=== PATIENT | female | born 1940 | race Caucasian/White ===

== ENCOUNTER 2016-09-25 19:02 | Observation (INO) ==
[2016-09-25] MEDS ORDERED: 0.9 % Sodium Chloride 1,000 ML IVC ONE (19:11)
--- NOTE | 2016-09-25 19:25 | Emergency Department Note ---
START Narrative - START START: I examined this patient and my medical decision-making was reviewed with the Resident Physician. I agree with the documented findings, disposition and treatment plan as described except to the extent set forth below. Patient was independently seen and evaluated by myself. Patient was seen with the emergency medicine resident Juan R Lo. Please see copy of her notes for details of this ED encounter management and disposition. Briefly: A 76-year-old female by EMS for frequent falls. History of hypertension among other medical problems. Some confusion and increased weakness. Patient had unknown type of fall at the [facility] today. Brought in by EMS, no external signs of trauma. Patient is tender along her spine. Labs and images are pending. Admission anticipated. Provided 30 minutes of critical care service of this patient. Disposition pending.
--- NOTE | 2016-09-25 19:27 | Emergency Department Note ---
Disposition Clinical Impression: Generalized weakness, Confusion, Risk for falls Disposition: Admitted As Inpatient Condition: Fair Referrals: Unassigned,Provider [Primary Care Provider] - Forms: ED Satisfaction Letter Time of Disposition: 23:59 Fall HPI - General Chief Complaint: ED Fall Stated Complaint: Freq Falls Time Seen by Provider: 09/25/16 19:05 Nursing Notes Reviewed: Yes Vital Signs Reviewed: Yes - History of Present Illness HPI Narrative: Patient is a 76-year-old female was brought in for global weakness and falls times past several months worsening today. Patient fell hitting her head and is on antiplatelet therapy. Patient has a history of prior strokes - Related Data Home Medications Medication Instructions Recorded Confirmed Aspirin 81 mg PO DAILY 09/07/15 01/26/16 Furosemide [Lasix] 40 mg PO BID PRN 09/07/15 01/26/16 Ipratropium/Albuterol Neb [Duoneb] 3 ml IH Q6HR PRN 09/07/15 01/26/16 Potassium Chloride [K-Tab ER] 10 meq PO BID 09/07/15 01/26/16 Clopidogrel [Plavix] 75 mg PO DAILY 12/29/15 01/26/16 Losartan [Cozaar] 25 mg PO BID 12/29/15 01/26/16 amLODIPine [Norvasc] 5 mg PO DAILY 12/29/15 01/26/16 Ergocalciferol (VITAMIN D2) 50,000 unit PO WE 01/26/16 01/26/16 [Vitamin D2] FLUoxetine HCl [Prozac] 40 mg PO DAILY 01/26/16 01/26/16 Oxygen 3 l NS AD 01/26/16 01/26/16 Previous Rx's Medication Instructions Recorded Cyanocobalamin (B-12) [Vitamin B12] 500 mcg PO DAILY tablet 09/10/15 Docusate [Colace] 100 mg PO BID PRN #0 capsule 09/10/15 OxyCODONE/APAP 10/325 [Percocet 1 each PO Q6H PRN #20 tablet 01/28/16 10/325 MG] diazePAM [Valium] 10 mg PO BID #20 tablet 01/28/16 Levofloxacin [Levaquin] 750 mg PO DAILY #7 tablet 02/18/16 Allergies Allergy/AdvReac Type Severity Reaction Status Date / Time Iodinated Contrast- Oral and AdvReac Hives, Verified 01/26/16 15:58 IV Dye Nausea, [Iodinated Contrast Media - Vomiting Oral and] Penicillins AdvReac Itching Verified 01/26/16 15:58 Fall PMH - Past Medical History Medical history: Reports: COPD, CVA, diabetes, GERD, hyperlipidemia, hypertension, renal disease, TIA Surgical history: Reports: cholecystectomy, hysterectomy, orthopedic, other ( back surgery) Psychiatric history: Reports: anxiety, depression - Social History Smoking Status: Current every day smoker Alcohol use: Reports: none Drug use: Reports: none Course - Reevaluation(s) Reevaluation #1: Patient seen and examined, workup for stroke, ACS initiated. Imaging CT head neck and thoracic ordered. Time: 19:11 Reevaluation #2: Patient doing well, patient heading down for CT Time: 20:30 Reevaluation #3: Patient doing well, just need to get urine. Straight catheter ordered. Patient agrees and accepts straight catheter. Physical occult what tests ordered and obtained. Waiting for results. Time: 21:57 - Consultations Consultation #1: Patient accepted for admission by the hospitalist Dr. FIORE 2350 hrs Time: 23:51 Fall - [facility] Narrative Medical decision making narrative: Patient with global weakness, frequent falls, fell and hit her head today concerning for ACS/AZ, ischemic stroke, cerebellar stroke, UTI, cardiac arrhythmia leading to brain ischemia transiently. Patient's workup showed no abnormalities that would indicate why patient is having this global weakness and confusion. Recommend admission since patient lives on her own in assisted living and is a fall risk. Also recommend neurology follow-up. Patient is admitted to the hospitalist Dr. magui john for further workup and care. Patient understands and agrees to treatment plan. - Lab Data Lab results reviewed: Yes I reviewed the patient's lab results. Lab results narrative: Short CBC 09/25/16 Range/Units 19:33 WBC 7.5 (4.3-11.1) K/mcL Hgb 12.1 (11.5-15.4) g/dL Hct 38.6 (35.3-44.9) % Plt Count 188 (140-400) K/mcL Neutrophils # 4.9 (1.6-8.9) K/mcL BMP 09/25/16 Range/Units 19:33 Sodium 141 (136-145) mEq/L Potassium 3.9 (3.5-4.5) mEq/L Chloride 101 (98-109) mEq/L Carbon Dioxide 31 H (19-29) mEq/L BUN 17 (7-20) mg/dL Creatinine 1.18 H (0.57-1.11) mg/dL Glucose 193 H (70-99) mg/dL Calcium 9.3 (8.6-10.8) mg/dL Liver Function 09/25/16 Range/Units 19:33 Total Bilirubin 0.3 (0.2-1.2) mg/dL AST 13 (5-34) Units/L ALT 10 (0-55) Units/L Alkaline Phosphatase 57 (38-126) Units/L Albumin 3.3 L (3.5-5.0) g/dL - Radiology Data Radiology results reviewed: Yes I reviewed the patient's radiology results. Cervical Spine CT 09/25/16 19:11 IMPRESSION: 1. No acute fracture. D/ / Juan Donaldson MD / Juan Donaldson MD Interpreting Provider: Juan Donaldson MD Chest X-Ray 09/25/16 19:11 IMPRESSION: No acute disease. D/ / Max Clay MD / Max Clay MD Interpreting Provider: Max Clay MD Head CT 09/25/16 19:11 IMPRESSION: No acute intracranial abnormality. Chronic microvascular ischemic changes and global cerebral atrophy. D/ / Candido Hernández MD / Candido Hernández MD Interpreting Provider: Candido Hernández MD Thoracic Spine CT 09/25/16 19:11 IMPRESSION: Unremarkable CT of the thoracic spine. D/ / Juan Donaldson MD / Juan Donaldson MD Interpreting Provider: Juan Donaldson MD - EKG Data EKG attestation: Yes I reviewed and interpreted this EKG. EKG results narrative: EKG taken 09/25/2016 and 1936 hrs. shows a sinus bradycardia at a rate of 57 bpm with no acute ST elevations or depressions any leads, no QRS widening or QT prolongation. Previous EKG taken 02/18/2016 shows sinus rhythm at a rate of 63 bpm Lotta artifact but no acute ST elevations or depressions any leads or QRS widening or QT prolongation.
[2016-09-25 19:41] LABS: Basophils % 0.5 %; Eosinophils # 0.4 K/mcL (0.0-0.6); Eosinophils % 5.4 %; Hematocrit 38.6 % (35.3-44.9); Hemoglobin 12.1 g/dL (11.5-15.4); Immature Granulocytes % 0.3 % (0-4); Immature Platelets 3.8 % (1.1-6.1); Lymphocytes # 1.6 K/mcL (0.6-4.6); Lymphocytes % 20.8 %; Mean Corpuscular HGB Conc 31.3 g/dL (31.6-35.5); Mean Corpuscular Hemoglobin 28.9 pg (28.0-33.3); Mean Corpuscular Volume 92.3 fL (83.0-100.0); Mean Platelet Volume 10.3 fL (9.4-12.4); Monocytes # 0.5 K/mcL (0.0-1.3); Monocytes % 6.7 %; Neutrophils # 4.9 K/mcL (1.6-8.9); Platelet Count 188 K/mcL (140-400); Red Blood Count 4.18 M/mcL (3.82-4.97); Red Cell Distribution Width 12.4 % (11.5-14.5); Segmented Neutrophils % 66.3 %
[2016-09-25 19:54] LABS: Albumin 3.3 g/dL (3.5-5.0); Albumin/Globulin Ratio 0.8 (1.1-2.2); Bilirubin,Total 0.3 mg/dL (0.2-1.2); Calcium 9.3 mg/dL (8.6-10.8); Globulin 4.3 g/dL (2.4-3.5); Potassium 3.9 mEq/L (3.5-4.5); Total Protein 7.6 g/dL (6.0-8.3)
[2016-09-25 22:27] LABS: Bilirubin,Urine Negative (Negative); Blood,Urine Moderate (Negative); Clarity,Urine Clear (Clear); Color,Urine Yellow (Yellow); Glucose,Urine (UA) Normal (Normal); Ketones,Urine Negative (Negative); Leukocyte Esterase,Urine Small (Negative); Nitrite,Urine Negative (Negative); Protein,Urine Negative (Neg-Trace); Specific Gravity,Urine 1.021 (1.010-1.025); Urobilinogen,Urine Normal (Normal)
[2016-09-25 22:29] LABS: Bacteria,Urine None Seen per hpf (None-Few); Hyaline Casts,Urine Few per lpf (None-Few); RBC,Urine 15-30 per hpf (0-3); Squamous Epithelial Cell,Urine Many per lpf (None-Few); WBC,Urine 0-3 per hpf (0-3)
[2016-09-26] MEDS ORDERED: Ondansetron 4 MG/2 ML VIAL IVP PRN (04:48)
[2016-09-26] MEDS ORDERED: Naloxone 0.4 MG/ML INJ IVP PRN (04:48)
--- NOTE | 2016-09-26 05:02 | Internal Med History&Physical ---
Date of Encounter: 09/26/16 Time of Encounter: 04:56 Assessment and Plan (1) Syncope Current visit: No Status: Acute 1. Will place on telemetry, follows EKG's. 2. Will order ECHO, Carotid Dopplers, and monitor telemetry. 3. Patient is bradycardic and not on any meds which could suppress her HR. 4. Monitor glucose for signs of hypoglycemia. Qualifiers: Syncope type: unspecified Qualified Code(s): R55 - Syncope and collapse (2) Frequent falls Current visit: No Status: Acute 1. Maybe related to syncope. 2. Monitor. 3. Consult PT/OT to assess. (3) HTN (hypertension) Current visit: No Status: Chronic 1. Monitor BP and continue home meds as appropriate. 2. Adjust dosing as necessary. Qualifiers: Hypertension type: essential hypertension Qualified Code(s): I10 - Essential (primary) hypertension (4) DVT prophylaxis Current visit: No Status: Acute 1. Heparin SQ. Internal Medicine - H&P: HPI Chief complaint: falls; syncope Admitted From: Emergency Dept Plans for Post Hospital Care: Home History of present illness: Ms. Wong is a 76 year old female who [facility] complaints of fall on multiple occasions. She has been unable to ambulate even with a walker without following on frequent occasions. This has progressively worsened. [facility]'s event was worse and she came to ER for evaluation. She had imaging of her thoracic spine, head, and cervical spine CT, all of which were negative. She was subsequently admitted to the hospitalist service. Upon my assessment of the patient, she describes frequent feelings of lightheadedness and dizziness before she falls. It appears that her falls are more likely related to her syncopal events. She states she has had a few episodes in the past where she had true syncope. She had an episode about a year and a half ago where she fell after sustaining a syncopal spell. During that fall, she sustained fractures to both arms. She does not have any chest pain, shortness of breath, or palpitations. She states she has a history of an old stroke. She is not diabetic and denies any problems with her glucose control. Because of her fear of falling and passing out, she is rather sedentary and is afraid to walk and ambulate. I noted that she seems bradycardic on auscultation and her EKG does show sinus bradycardia. She denies any prior heart rhythm problems. Furthermore, she does not take any medications which can suppress her AV node. Past Med Surg Social Fam HX - Past Medical History Attestation: Yes The following information was validated with the patient. Source: patient, old records reviewed Medical history: COPD, CVA, diabetes, GERD, hyperlipidemia, hypertension, renal disease, TIA Psychiatric history: anxiety, depression - Past Surgical History Surgical History: cholecystectomy, hysterectomy, orthopedic, other - Social History Smoking Status: Former smoker Smokeless Tobacco Status: No Alcohol use: none Drug use: none Current living situation: Assisted Living Activity Level: Uses cane/walker Recent Out of Country Travel Within the Last 8 Weeks: No - Family History Father Living Status: Brother Living Status: Still Living Hx Family Cardiac Disorders: Yes (Bi-pass, CHF) Mother History Unknown: Yes Adopted: [place]: [place]rina [place] Age: 72 Family Member Ethnicity: Non- Living Status: Hx Family Cardiac Disorders: Yes Hx Family Respiratory Disorders: No Hx Family Cancer: Yes Hx Family GI Disorders: No Hx Family Endocrine Disorder: Yes (Diabetes) Hx Family Neuromuscular Disorders: Yes (CVA) Hx Family Neurologic Disorders: No Hx Family HEENT Disorders: No Hx Family Autoimmune Disorders: No Internal Medicine - H&P: Meds Aspirin 81 mg PO DAILY 09/07/15 [History] Furosemide [Lasix] 40 mg PO BID PRN 09/07/15 [History] Ipratropium/Albuterol Neb [Duoneb] 3 ml IH Q6HR PRN 09/07/15 [History] Potassium Chloride [K-Tab ER] 10 meq PO BID 09/07/15 [History] Cyanocobalamin (B-12) [Vitamin B12] 500 mcg PO DAILY tablet 09/10/15 [Rx] Docusate [Colace] 100 mg PO BID PRN #0 capsule 09/10/15 [Rx] Clopidogrel [Plavix] 75 mg PO DAILY 12/29/15 [History] Losartan [Cozaar] 25 mg PO BID 12/29/15 [History] amLODIPine [Norvasc] 5 mg PO DAILY 12/29/15 [History] Ergocalciferol (VITAMIN D2) [Vitamin D2] 50,000 unit PO WE 01/26/16 [History] FLUoxetine HCl [Prozac] 40 mg PO DAILY 01/26/16 [History] Oxygen 3 l NS AD 01/26/16 [History] OxyCODONE/APAP 10/325 [Percocet 10/325 MG] 1 each PO Q6H PRN #20 tablet [Rx] diazePAM [Valium] 10 mg PO BID #20 tablet 01/28/16 [Rx] Levofloxacin [Levaquin] 750 mg PO DAILY #7 tablet 02/18/16 [Rx] 3 Allergy/AdvReac Type Severity Reaction Status Date / Time Iodinated Contrast- Oral and AdvReac Hives, Verified 01/26/16 15:58 IV Dye Nausea, [Iodinated Contrast Media - Vomiting Oral and] Penicillins AdvReac Itching Verified 01/26/16 15:58 - Constitutional Constitutional: falls, no chills, no fever(s) - EENT Eyes: no blurry vision, no change in vision, no diplopia Ears: no ear pain, no tinnitus Nose, mouth and throat: no nasal discharge, no sinus pressure, no sore throat - Cardiovascular Cardiovascular ROS IM: lightheadedness, syncope, no chest pain, no diaphoresis, no dyspnea, no dyspnea on exertion, no edema, no palpitations - Respiratory Respiratory: no cough, no dyspnea, no hemoptysis - Gastrointestinal Gastrointestinal: no abdominal pain, no bloating, no cramping, no diarrhea, no hematemesis, no hematochezia, no melena, no vomiting - Genitourinary Genitourinary: no dysuria, no flank pain, no hematuria - Musculoskeletal Musculoskeletal ROS IM: arthralgias, no back pain - Integumentary Integumentary IM: no rash, no jaundice - Neurological Neurological ROS: dizziness, frequent falls, weakness, no focal weakness, no headache(s), no numbness - Psychiatric Psychiatric: no anxiety, no depression - Endocrine Endocrine IM: no cold intolerance, no heat intolerance - Hematologic/Lymphatic Hematologic/Lymphatic: no lymphadenopathy - Allergic/Immunologic Allergic/Immunologic: no GI upset with certain foods - Constitutional Vitals: Temp Pulse Resp BP Pulse Ox 97.6 F 65 15 167/73 99 09/26/16 00:56 09/26/16 00:56 09/26/16 00:56 09/26/16 00:56 09/26/16 00:56 General appearance: Present: cachectic, mild distress, A&O X 3, pleasant, answers questions appropriately - Head Head exam: Present: atraumatic, normal inspection - Eye Eye exam: Present: EOMI, normal appearance, PERRL. Absent: scleral icterus Pupils: Present: normal accommodation - ENT ENT exam: Absent: normal exam - Neck Neck exam general surgery: Present: full ROM. Absent: lymphadenopathy, tenderness, nuchal rigidity - Respiratory Respiratory exam: Present: CTAB. Absent: chest wall tenderness, rales, respiratory distress, rhonchi, wheezes - Cardiovascular Cardiovascular exam: Present: irregular rhythm, +S1, +S2 - GI/Abdominal GI/Abdominal exam: Present: soft. Absent: hepatomegaly, splenomegaly, tenderness - Extremities Exam Extremities exam: Present: full ROM. Absent: calf tenderness, pedal edema, tenderness - Back Exam Back exam: Absent: CVA tenderness (L), CVA tenderness (R) - Neurological Exam Neurological exam: Present: alert, CN II-XII intact, oriented X3, no focal deficits, strengths equal and symetr throughout - Psychiatric Psychiatric exam: Present: normal affect, normal mood - Skin Skin exam: Present: dry, warm. Absent: rash Internal Med - H&P Results - Labs CBC & Chem 7: 09/25/16 19:33 09/25/16 19:33 - EKG Data -: EKG Interpreted by Myself - EKG Data EKG comments: 09/26/16 05:09 Sinus bradycardia - Diagnostic Studies Chest x-ray Status: image reviewed by me (negative)
[2016-09-26] MEDS: *HR* Heparin 5,000 UNIT/ML VIAL SQ SCH ×3 (05:25→21:56)
[2016-09-26 07:41] LABS: Basophils # 0.1 K/mcL (0.0-0.2); Basophils % 0.6 %; Eosinophils # 0.4 K/mcL (0.0-0.6); Eosinophils % 5.3 %; Hematocrit 37.4 % (35.3-44.9); Hemoglobin 11.9 g/dL (11.5-15.4); Immature Granulocytes % 0.5 % (0-4); Lymphocytes # 2.1 K/mcL (0.6-4.6); Lymphocytes % 25.8 %; Mean Corpuscular HGB Conc 31.8 g/dL (31.6-35.5); Mean Corpuscular Hemoglobin 29.5 pg (28.0-33.3); Mean Corpuscular Volume 92.6 fL (83.0-100.0); Mean Platelet Volume 10.8 fL (9.4-12.4); Monocytes # 0.6 K/mcL (0.0-1.3); Monocytes % 7.4 %; Neutrophils # 4.9 K/mcL (1.6-8.9); Platelet Count 178 K/mcL (140-400); Red Blood Count 4.04 M/mcL (3.82-4.97); Red Cell Distribution Width 12.2 % (11.5-14.5); Segmented Neutrophils % 60.4 %
[2016-09-26 07:42] LABS: Prothrombin Time 10.7 Seconds (9.4-12.1)
[2016-09-26 07:45] LABS: Activated Partial Thrombo Time 32.5 Seconds (26.0-36.0)
[2016-09-26 07:47] LABS: Alanine Aminotransferase 10 Units/L (0-55); Albumin 3.1 g/dL (3.5-5.0); Albumin/Globulin Ratio 0.8 (1.1-2.2); Alkaline Phosphatase 54 Units/L (38-126); Aspartate Amino Transferase 12 Units/L (5-34); BUN/Creatinine Ratio 17 (6-26); Bilirubin,Total 0.6 mg/dL (0.2-1.2); Blood Urea Nitrogen 16 mg/dL (7-20); Calcium 9.3 mg/dL (8.6-10.8); Carbon Dioxide 32 mEq/L (19-29); Chloride 103 mEq/L (98-109); Globulin 3.9 g/dL (2.4-3.5); Glucose 111 mg/dL (70-99); Magnesium 1.8 mg/dL (1.6-2.6); Osmolality,Calculated 296 (280-300); Potassium 3.7 mEq/L (3.5-4.5); Sodium 142 mEq/L (136-145); eGFR For African Americans > 60 (> 60); eGFR For Non-African Americans 58 (> 60)
[2016-09-26] MEDS: *HR* OxyCODONE/APAP 10/325 TABLET PO PRN ×2 (08:06→23:30)
[2016-09-26] MEDS: diazePAM 10 MG TABLET PO SCH ×2 (08:06→21:56)
[2016-09-26] MEDS: Cyanocobalamin (B-12) 1,000 MCG TABLET PO SCH (08:06)
[2016-09-26] MEDS: amLODIPine 5 MG TABLET PO SCH (08:06)
[2016-09-26] MEDS: FLUoxetine 20 MG CAPSULE PO SCH (08:06)
[2016-09-26] MEDS: Aspirin 81 MG TAB.CHEW PO SCH (08:06)
[2016-09-26] MEDS: Ipratropium/Albuterol Neb 3 ML IH SCH ×3 (13:09→22:13)
--- NOTE | 2016-09-26 14:04 | Event Note ---
Date of Encounter: 09/26/16 Time of Encounter: 13:57 Patient seen and examined. She reports syncope and falling on multiple occasions and does much better with her walker. She does feel dizzy and light- headed when this happens. She denies any chest pain, palpitations, dypnea, or diaphoresis associated with these events. She does report that she is more confused at times, but does not feel there is an association with the falls. She had very poor food and fluid intake for several day prior to this latest fall. Previous history of CVA with some residual weakness in her right lower extremity. Currently she feels well and has no complaints. Denies chest pain, dyspnea, cough, N/V/D, dysuria, or leg pain/swelling. Plan: Echo and Carotid U/S pending. Monitor glucose. PT/OT consulted.
[2016-09-26] MEDS: Nystatin POWDER 30 GM BOTTLE TP SCH ×2 (15:12→21:56)
[2016-09-26] MEDS ORDERED: Perflutren Lipid Microsphere 1.3 ML in 0.9 % Sodium Chloride 8.7 ML IVP ONE (15:17)
[2016-09-26] MEDS ORDERED: Perflutren Lipid Microsphere 2 ML VIAL ONE (15:20)
--- NOTE | 2016-09-26 18:08 | Electrocardiograph Report ---
[address] [place] [address] Test Date: 2016-09-25 Pat Name: Joanna Wong Department: 0 Room: 3A36 Gender: F Staff Reporter: Reyna : 1940 Requested By: Mono Nayak Order Number: [id number] Reading MD: Tadeo Curry MD Measurements Intervals [place] Rate: 57 P: 81 MS: 171 QRS: 9 QRSD: 87 T: 48 QT: 405 QTc: 399 Interpretive Statements SINUS BRADYCARDIA Electronically Signed On 09-26-2016 18:07:12 EDT by Tadeo Curry MD
[2016-09-27] MEDS: Ipratropium/Albuterol Neb 3 ML IH SCH ×4 (04:06→22:15)
[2016-09-27 05:32] LABS: BUN/Creatinine Ratio 16 (6-26); Blood Urea Nitrogen 18 mg/dL (7-20); Calcium 9.2 mg/dL (8.6-10.8); Carbon Dioxide 32 mEq/L (19-29); Chloride 103 mEq/L (98-109); Chol/HDL Ratio 10.6 (0-4.9); Cholesterol 306 mg/dL (< 200); Glucose 109 mg/dL (70-99); HDL Cholesterol 29 mg/dL (40-59); Osmolality,Calculated 294 (280-300); Potassium 4.1 mEq/L (3.5-4.5); Triglycerides 458 mg/dL (< 150); eGFR For African Americans 55 (> 60); eGFR For Non-African Americans 45 (> 60)
[2016-09-27 05:33] LABS: Sodium 141 mEq/L (136-145)
[2016-09-27] MEDS: *HR* Heparin 5,000 UNIT/ML VIAL SQ SCH ×3 (05:38→21:03)
--- NOTE | 2016-09-27 07:02 | Carotid Imaging Report ---
Carotid Duplex Patient Name:Joanna Wong Order Number:[id number] Procedure Date:09/26/2016 Date:1940Age:76 yrs Gender:Female Lt BP:175 / 76 mmHg Rt.BP:175 / 76 mmHgHeart Rate: Location:[facility] Room #: 3A36 Multi Punch Operator:Cr Montes Referring MD:Isac Florence MD wildlife biology technician:Rula Graham, HYDROLOGICAL TECHNICAL OFFICER Reading MD:Danny Riggs MD Primary Indications:Syncope Risk Factors Yes/No Hypertension Yes Diabetes Yes Hypercholesterolemia Yes Smoker Previous Yes Impressions: The right carotid artery has minimal plaque throughout. The left internal carotid artery has a 40-59% stenosis. Recommendations: Risk factor reduction. Follow-up carotid duplex in 1 year. Findings Carotid Duplex: Right: There is nonstenotic plaque in the right bifurcation. There is smooth homogeneous plaque. There is nonstenotic plaque in the right proximal internal carotid artery. There is irregular heterogeneous plaque. Left: There is nonstenotic plaque in the left distal common carotid artery. There is smooth homogeneous plaque. There is nonstenotic plaque in the left bifurcation. There is smooth homogeneous plaque. There is 40-59% stenosis in the left proximal internal carotid artery. There is irregular heterogeneous plaque. Prior Study: No prior study available for comparison. Carotid Results Right PSV EDV Assessment Proximal CCA 71 8 Normal Mid CCA 61 12 Normal Distal CCA 46 8 Normal Bifurcation 51 10 Non Stenotic Plaque Proximal ICA 76 14 Non Stenotic Plaque Mid ICA 85 22 Normal Distal ICA 70 17 Normal ECA 143 0 Normal Vertebral Artery 75 14 Antegrade Flow Left PSV EDV Assessment Proximal CCA 90 18 Normal Mid CCA 73 12 Normal Distal CCA 66 11 Non Stenotic Plaque Bifurcation 77 11 Non Stenotic Plaque Proximal ICA 123 22 40-59% stenosis Mid ICA 101 19 Normal Distal ICA 74 19 Normal ECA 121 0 Normal Vertebral Artery 94 17 Retrograde Flow Ratio's Right ICA/CCA Ratio: 1.27 ICA/CCA Values: 85/67 Left ICA/CCA Ratio: 1.68 ICA/CCA Values: 123/73 Updated by Danny Riggs MD on 09/27/2016 6:58:27 AM electronically signed on 09/27/2016 6:58:44 AM with status of Final
[2016-09-27] MEDS: Aspirin 81 MG TAB.CHEW PO SCH (08:37)
[2016-09-27] MEDS: diazePAM 10 MG TABLET PO SCH ×2 (08:37→21:03)
[2016-09-27] MEDS: Cyanocobalamin (B-12) 1,000 MCG TABLET PO SCH (08:38)
[2016-09-27] MEDS: *HR* OxyCODONE/APAP 10/325 TABLET PO PRN ×2 (08:38→21:24)
[2016-09-27] MEDS: FLUoxetine 20 MG CAPSULE PO SCH (08:38)
[2016-09-27] MEDS: amLODIPine 5 MG TABLET PO SCH (08:38)
[2016-09-27] MEDS: Nystatin POWDER 30 GM BOTTLE TP SCH ×3 (08:41→21:03)
--- NOTE | 2016-09-27 10:51 | Internal Med Progress Note ---
Date of Encounter: 09/27/16 Time of Encounter: 10:48 - Assessment and plan (1) Syncope Current Visit: No Status: Acute Assessment and plan: Likely secondary to Orthostatic Hypotension - awaiting orthostatic measurements Carotid U/S: Left Internal carotid with 40-59% stenosis. Right with minimal plaque throughout. Echo: LVEF 60%, moderate diastolic dysfunction of left ventricle Plan: Orthostatic BP measurements Change BP medications as needed Qualifiers: Syncope type: unspecified Qualified Code(s): R55 - Syncope and collapse (2) Frequent falls Current Visit: No Status: Acute Assessment and plan: Likely Orthostatic in nature Plan: Continue PT/OT Will need placement/rehab upon discharge (3) HTN (hypertension) Current Visit: No Status: Chronic Assessment and plan: On Losartan, Amlodipine, and Lasix at home Plan: Continue therapy for now May need to adjust based on orthostatic measurements Qualifiers: Hypertension type: essential hypertension Qualified Code(s): I10 - Essential (primary) hypertension (4) Hyperlipemia Current Visit: No Status: Chronic Assessment and plan: TG 485, Chol 306, LDL/VLDL not calculated (TNP), HDL 29 Has tried several medications in the past - unable to tolerate medications for Hyperlipidemia Qualifiers: Hyperlipidemia type: unspecified (5) DVT prophylaxis Current Visit: No Status: Acute Assessment and plan: Heparin - Subjective Interval history: Patient seen and examined, she is sitting up in her chair. Reports she is feeling well without complaints. She was up with PT and walked some in the room without feeling dizzy. They will be back later to work with her more. She denies chest pain, dyspnea, cough, N/V/D, dysuria, or leg pain/edema. - Constitutional Vitals: Temp Pulse Resp BP Pulse Ox 97.9 F 105 16 130/74 95 09/27/16 06:40 09/27/16 06:40 09/27/16 06:40 09/27/16 06:40 09/27/16 06:40 General appearance: Present: cachectic, mild distress, A&O X 3, pleasant, answers questions appropriately - Head Head exam: Present: atraumatic, normocephalic - Eye Eye exam: Present: conjuntiva pink, sclera anicteric - ENT ENT exam: Present: mucous membranes moist - Respiratory Respiratory exam: Present: CTAB. Absent: rales, rhonchi, wheezes - Cardiovascular Cardiovascular exam: Present: RRR, +S1, +S2. Absent: diastolic murmur, systolic murmur - GI/Abdominal GI/Abdominal exam: Present: normal bowel sounds, soft. Absent: distended, rigid , tenderness - Extremities Exam Extremities exam: Present: pedal edema, warm, radial pulses palpable and symmetrical. Absent: tenderness - Neurological Exam Neurological exam: Present: alert, CN II-XII intact, oriented X3, no focal deficits Internal Medicine: Result - Labs CBC & Chem 7: 09/26/16 06:16 09/27/16 04:48 Labs: BMP 09/27/16 04:48 Sodium 141 Potassium 4.1 Chloride 103 Carbon Dioxide 32 H BUN 18 Creatinine 1.16 H Glucose 109 H Calcium 9.2 - ABG Interpretation ABG results: PT/INR, D-dimer PT 10.7 Seconds (9.4-12.1) 09/26/16 06:16 Consult Discharge Plan - Plan Referrals: Rula Graham, [employer] OPER[employer] [Primary Care Provider] -
[2016-09-28] MEDS: Ipratropium/Albuterol Neb 3 ML IH SCH ×3 (03:54→16:28)
[2016-09-28] MEDS: *HR* Heparin 5,000 UNIT/ML VIAL SQ SCH ×2 (05:01→14:04)
[2016-09-28 06:47] LABS: Potassium 4.4 mEq/L (3.5-4.5)
[2016-09-28] MEDS: FLUoxetine 20 MG CAPSULE PO SCH (12:49)
[2016-09-28] MEDS: diazePAM 10 MG TABLET PO SCH (12:50)
[2016-09-28] MEDS: Aspirin 81 MG TAB.CHEW PO SCH (12:51)
[2016-09-28] MEDS: Cyanocobalamin (B-12) 1,000 MCG TABLET PO SCH (12:52)
[2016-09-28] MEDS: amLODIPine 5 MG TABLET PO SCH (12:52)
[2016-09-28] MEDS: Nystatin POWDER 30 GM BOTTLE TP SCH ×2 (12:53→15:30)
--- NOTE | 2016-09-28 13:46 | Tilt Test Report ---
Name: Joanna Wong Date of Study: 09/28/2016 Date: 1940 Ht: 65.0in Medical Record#: [id number] Age: 76 Wt: 203.0lb Gender: Female BSA: 1.99 Order #: [id number] Location: [facility] Room #: 3a36 Reading Physician: Tania Hernandez DO Performing Physician: Yoli Harper CNP Ordering Physician: Laney Alberto MD Primary Care Physician: Rula Graham CNP Technologist: Arnulfo Jackson, ANNA Indication: Syncope Impressions Study stopped prematurely at patient's request (leg weakness). Current Stress Test Information Baseline Information: Blood Pressure: 140 / 70 Symptoms: Legs tired Findings: Following informed consent, the patient was placed supine on the tilt table. The table was angled to 70 degrees. Blood pressure and pulse rate were monitored for total of 10:12 minutes. Patient asked to stop the test due to leg weakness. The patient's blood pressure remained stable throughout her tilt testing time. Heart rates remained in the 50s. ECG demonstrated sinus bradycardia with heart rates in the 50s. History: Hypertension Diabetes Hypercholesteremia No Family Histor Updated by Tania Hernandez on 09/28/2016 1:39:12 PM electronically signed on 09/28/2016 1:41:15 PM with status of Final
[2016-09-28 14:10] VITALS: BP 105/97
--- NOTE | 2016-09-28 14:26 | Discharge Summary ---
Date of Encounter: 09/28/16 Time of Encounter: 10:10 - Discharge Diagnosis (1) Syncope Priority: Primary Status: Acute Comments: Possibly vasovagal/ bradycardia related Qualifiers: Syncope type: vasovagal syncope Qualified Code(s): R55 - Syncope and collapse (2) Frequent falls Priority: Secondary Status: Acute (3) HTN (hypertension) Priority: Secondary Status: Chronic Qualifiers: Hypertension type: essential hypertension Qualified Code(s): I10 - Essential (primary) hypertension (4) Hyperlipemia Priority: Secondary Status: Chronic Qualifiers: Hyperlipidemia type: unspecified Qualified Code(s): E78.5 - Hyperlipidemia , unspecified (5) DVT prophylaxis Priority: Secondary Status: Acute - Discharge Medications Prescriptions: diazePAM [Valium] 10 mg PO BID #14 tablet Oxycodone HCl/Acetaminophen [Percocet 10-325 mg Tablet] 1 tab PO BID PRN #14 PRN Reason: Pain Home Medications: Aspirin 81 mg PO DAILY 09/07/15 [History] Furosemide [Lasix] 40 mg PO BID PRN 09/07/15 [History] Potassium Chloride [K-Tab ER] 10 meq PO BID 09/07/15 [History] Cyanocobalamin (B-12) [Vitamin B12] 500 mcg PO DAILY tablet 09/10/15 [Rx] Docusate [Colace] 100 mg PO BID PRN #0 capsule 09/10/15 [Rx] Clopidogrel [Plavix] 75 mg PO DAILY 12/29/15 [History] Losartan [Cozaar] 25 mg PO BID 12/29/15 [History] Ergocalciferol (VITAMIN D2) [Vitamin D2] 50,000 unit PO WE 01/26/16 [History] FLUoxetine HCl [Prozac] 40 mg PO DAILY 01/26/16 [History] Oxygen 3 l NS AD 01/26/16 [History] Oxycodone HCl/Acetaminophen [Percocet 10-325 mg Tablet] 1 tab PO BID PRN #14 [Rx] amLODIPine [Norvasc] 5 mg PO DAILY tab 09/28/16 [Rx] diazePAM [Valium] 10 mg PO BID #14 tablet 09/28/16 [Rx] Allergies/Adverse Reactions: 3 Allergy/AdvReac Type Severity Reaction Status Date / Time Iodinated Contrast- Oral and AdvReac Hives, Verified 01/26/16 15:58 IV Dye Nausea, [Iodinated Contrast Media - Vomiting Oral and] Penicillins AdvReac Itching Verified 01/26/16 15:58 Procedures/tests Complete & Pending: Procedures Performed prior 72 hours Category Date Time Status ECG 12 lead ECG [ECG] Routine Y 09/25/16 19:36 Completed EV carotid duplex imaging BI Stat Y 09/26/16 04:48 Completed EV echocardiogram w enhance Stat Y 09/26/16 04:48 Completed SP tilt test Routine Y 09/28/16 08:03 Completed Date of admission: 09/26/16 00:07 Primary care physician: Rula Graham CNP Consults: 09/26/16 01:26 Consult to Pastoral Services [CONS] Stat Comment: 09/26/16 03:32 Consult to [facility] [CONS] Stat Reason for SW Consult: Pt from assisted living facility 09/26/16 04:52 Consult to Occupational Therapy [CONS] Routine Comment: Evaluate, develop and implement POC Reason for Consult: frequent falls Consult to Physical Therapy [CONS] Routine Comment: Evaluate, develop and implement POC Reason for Consult: frequent falls Discharging clinician: Laney Alberto Anticipated date of discharge: 09/28/16 - Patient Status Disposition: Transfer SNF Condition: Good Functional capacity at discharge: uses cane/walker Overall status at discharge: patient is progressing back to baseline - Discharge Instructions Instructions: Syncope (DC) Follow Up With: Rula Graham CNP [Primary Care Provider] - (In 1-2 weeks) - Diet and Activity Activity: as per physical therapy, increase activity as tolerated Diet: low fat, low cholesterol, low salt diet Hospital course: Ms. Wong is a 76 year old female patient with a history of COPD, diabetes, hypertension and hyperlipidemia presented to the ER with complaints of recurrent falls and a syncopal episode. Patient had been having episodes of dizziness and lightheadedness prior to her falls. She was found to be bradycardic on presentation and patient does take carvedilol at home. This medication was stopped and patient was monitored and treated with IV fluids. Her orthostatic blood pressure was checked and this was found to be normal. As part of syncope workup patient underwent 2-D echocardiogram which showed a normal ejection fraction of 60% with evidence of moderate diastolic dysfunction. CT scan of the head did not show any acute stroke or bleed. She also underwent carotid Dopplers which showed normal minimal plaque in the right carotid artery and 40-59% stenosis in the left internal carotid artery. Her symptoms have mostly resolved now and patient is not feeling as dizzy as she previously was. There could be an orthostatic component to her dizziness despite having normal orthostatic blood pressure on checking here because she did receive IV fluids prior to testing. To continue her syncope workup patient also underwent tilt table test but the test had to be stopped [place] as patient complained of some weakness in her lower extremities. She has since recovered. This test can be repeated as outpatient when the patient is feeling better. She was evaluated by physical therapy and recommended placement to skilled rehabilitation. Patient will be discharged from the hospital once she is accepted at her nursing facility for skilled rehabilitation. She is recommended to discontinue carvedilol due to her bradycardia. Her amlodipine dosage has been increased to control her blood pressure better. She can follow up for further management with her primary care provider. - Time Spent with Patient Total time spent providing and/or coordinating discharge services: Greater than 30 minutes (40 min) - Constitutional Vitals: Temp Pulse Resp BP Pulse Ox 97.6 F 72 16 105/97 95 09/28/16 14:08 09/28/16 14:08 09/28/16 14:08 09/28/16 14:08 09/28/16 14:08 General appearance: Present: cachectic, A&O X 3, pleasant, no acute distress, answers questions appropriately - Neck Neck exam general surgery: Present: supple, trachea midline. Absent: lymphadenopathy - Respiratory Respiratory exam: Present: CTAB. Absent: accessory muscle use, rales, rhonchi, wheezes - Cardiovascular Cardiovascular exam: Present: RRR, +S1, +S2. Absent: diastolic murmur, gallop, rubs, systolic murmur - GI/Abdominal GI/Abdominal exam: Present: normal bowel sounds, soft, no peritoneal signs. Absent: distended, tenderness - Neurological Exam Neurological exam: Present: alert, oriented X3, no focal deficits. Absent: facial droop, speech deficit
--- NOTE | 2016-09-28 14:36 | Physician Discharge Referral ---
ExtendedCare Referral Info Provider in Charge after Transfer: PCP Institutional Level of Care: Skilled - Diagnosis (1) Syncope Priority: Primary Status: Acute (2) Frequent falls Priority: Secondary Status: Acute (3) HTN (hypertension) Priority: Secondary Status: Chronic (4) Hyperlipemia Priority: Secondary Status: Chronic (5) DVT prophylaxis Priority: Secondary Status: Acute (6) Sinus bradycardia Priority: Secondary Status: Resolved Prognosis: Fair Aware of Diagnosis: Patient Aware of Prognosis: Patient - Transfer Medications Home Medications: Aspirin 81 mg PO DAILY 09/07/15 [History] Furosemide [Lasix] 40 mg PO BID PRN 09/07/15 [History] Potassium Chloride [K-Tab ER] 10 meq PO BID 09/07/15 [History] Cyanocobalamin (B-12) [Vitamin B12] 500 mcg PO DAILY tablet 09/10/15 [Rx] Docusate [Colace] 100 mg PO BID PRN #0 capsule 09/10/15 [Rx] Clopidogrel [Plavix] 75 mg PO DAILY 12/29/15 [History] Losartan [Cozaar] 25 mg PO BID 12/29/15 [History] Ergocalciferol (VITAMIN D2) [Vitamin D2] 50,000 unit PO WE 01/26/16 [History] FLUoxetine HCl [Prozac] 40 mg PO DAILY 01/26/16 [History] Oxygen 3 l NS AD 01/26/16 [History] diazePAM [Valium] 10 mg PO BID #20 tablet 01/28/16 [Rx] Oxycodone HCl/Acetaminophen [Percocet 10-325 mg Tablet] 1 tab PO BID PRN [History] amLODIPine [Norvasc] 5 mg PO DAILY tab 09/28/16 [Rx] Allergies/Adverse Reactions: 3 Allergy/AdvReac Type Severity Reaction Status Date / Time Iodinated Contrast- Oral and AdvReac Hives, Verified 01/26/16 15:58 IV Dye Nausea, [Iodinated Contrast Media - Vomiting Oral and] Penicillins AdvReac Itching Verified 01/26/16 15:58 - Respiratory Orders Oxygen / L per min (Keep sats >90%) Smoking Cessation: Smoking cessation has been advised. For more information, call the [employer] Tobacco Quit Line at 5-698-JVRW-NOW. - Advance Directives Code Status: Full Code - Mobility Orders Ambulate (per PT) - Rehabiliation Orders Rehab Potential: Fair Rehab Orders: Evaluation for Physical Therapy, Evaluation for Occupational Therapy - Diet Orders Cardiac CERTIFICATION: I certify that the transfer of the above named patient to an Extended Care Facility is necessary for the continuing treatment of the diagnosis listed. The above information is true and accurate reflection of patient's current condition. Confidential - Redisclosure prohibited without a patient's written consent.
== END 2016-09-28 16:56 ==
LOC: 3ANU 19:02 → EMEROO 19:02 → SUATTDRO 09-26 00:07 → 3ANU 09-26 00:31
PROVIDERS: ADMIT Internal Medicine; ATTEND Internal Medicine

== ENCOUNTER 2017-02-12 08:56 | Observation (INO) ==
--- NOTE | 2017-02-12 09:10 | Emergency Department Note ---
Disposition Clinical Impression: Acute exacerbation of chronic obstructive airways disease Disposition: Admitted As Inpatient Condition: Fair SOB HPI - General Chief Complaint: ED Shortness of Breath/Dyspnea Stated Complaint: Shortness of breath Time Seen by Provider: 02/12/17 08:58 Source: patient, EMS Mode of arrival: EMS Limitations: no limitations Nursing Notes Reviewed: Yes Vital Signs Reviewed: Yes - History of Present Illness Patient was sent in from the assisted living facility by jamie for evaluation of "pneumonia and fall." Squad reports that the patient was recently diagnosed with pneumonia and has been feeling more short of breath. He was also told that she slid out of her chair this morning, but denied any injuries. She also denies any injuries to me. She denies syncopal episode. States that she was feeling a little bit weak and just slid. 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 She is a and O 3, but is a poor historian. She states that she had cataract surgery last Tuesday on her left eye and had no pain after the procedure, but has had pain around her left eye for the last two days. She points to the maxillary sinuses as the site of pain. She denies fever, chills, nausea, vomiting. Pt Subjective Complaint: shortness of breath Onset (ago): day(s) Context: recent illness, other (Cataract surgery last Tuesday) Severity: moderate Consistency/Duration: constant Improves with: nothing Worsens with: lying flat, exertion, coughing Known history of: COPD Associated symptoms: Reports: cough, wheezing, orthopnea, other (Left-sided facial pain as described above). Denies: chest pain, pain with inspiration, fever, sputum production, lower extremity pain, polyuria, polydipsia, parasthesias, palpitations, hemoptysis, diaphoresis, nausea/vomiting, syncope, abdominal pain, rash, sense of impending doom Treatment prior to arrival: oxygen, bronchodilator (Albuterol neb per EMS) Cough present: Yes Cough Description: Involuntary, Weak, Loose Cough Frequency: Persistent Sputum production: No - Related Data Home oxygen amount: 3 liters Home Medications Medication Instructions Recorded Confirmed Aspirin 81 mg PO DAILY 09/07/15 02/12/17 Furosemide [Lasix] 40 mg PO BID 09/07/15 02/12/17 Potassium Chloride [K-Tab ER] 10 meq PO BID 09/07/15 02/12/17 Clopidogrel [Plavix] 75 mg PO DAILY 12/29/15 02/12/17 Losartan [Cozaar] 25 mg PO BID 12/29/15 02/12/17 Ergocalciferol (VITAMIN D2) 50,000 unit PO WE 01/26/16 02/12/17 [Vitamin D2] FLUoxetine HCl [Prozac] 40 mg PO DAILY 01/26/16 02/12/17 Oxygen 3 l NS AD 01/26/16 02/12/17 Bisacodyl [Dulcolax] 10 mg RC DAILY PRN 02/12/17 02/12/17 Budesonide Neb [Pulmicort Neb] 0.25 mg IH QID 02/12/17 02/12/17 Carbamide Peroxide 1 drop OT DAILY 02/12/17 02/12/17 Carvedilol [Carvedilol] 3.125 mg PO BID 02/12/17 02/12/17 Guaifenesin [Mucus Relief] 400 mg PO DAILY 02/12/17 02/12/17 Ipratropium/Albuterol Neb [Duoneb] 3 ml IH Q6HR 02/12/17 02/12/17 Nystatin POWDER [Nystop] 1 appl TP BID 02/12/17 02/12/17 Previous Rx's Medication Instructions Recorded Cyanocobalamin (B-12) [Vitamin B12] 500 mcg PO DAILY tablet 09/10/15 Docusate [Colace] 100 mg PO BID PRN #0 capsule 09/10/15 Oxycodone HCl/Acetaminophen 1 tab PO BID PRN #14 09/28/16 [Percocet 10-325 mg Tablet] amLODIPine [Norvasc] 5 mg PO DAILY tab 09/28/16 diazePAM [Valium] 10 mg PO BID #14 tablet 09/28/16 Allergies Allergy/AdvReac Type Severity Reaction Status Date / Time Iodinated Contrast- Oral and AdvReac Hives, Verified 01/26/16 15:58 IV Dye Nausea, [Iodinated Contrast Media - Vomiting Oral and] Penicillins AdvReac Itching Verified 01/26/16 15:58 All systems ED: reviewed and negative except as stated. Review of Systems: As Per HPI Constitutional: Reports: weakness (Generalized). Denies: fever, chills Eyes: Reports: as per HPI, other ("pain around the left eye but not in the eye") . Denies: eye discharge, vision change ENT ED: Denies: ear pain, throat pain, congestion, dysphagia Cardiovascular: Reports: dyspnea on exertion, orthopnea. Denies: chest pain, palpitations, edema, syncope Respiratory: Reports: cough, dyspnea, wheezes. Denies: hemoptysis, stridor, sputum production Gastrointestinal: Denies: nausea, vomiting, diarrhea Genitourinary: Denies: urgency, dysuria, frequency, hematuria Musculoskeletal: Denies: joint swelling, arthralgia Past Medical History - Past Medical History Medical history: Reports: COPD, CVA, diabetes, GERD, hyperlipidemia, hypertension, renal disease, TIA Surgical history: Reports: cholecystectomy, hysterectomy, orthopedic, other Psychiatric history: Reports: anxiety, depression - Social History Smoking Status: Former smoker Smokeless Tobacco Status: No Alcohol use: Reports: none Drug use: Reports: none Physical Exam - General Limitations: no limitations General appearance: alert, in no apparent distress - Head Head exam: atraumatic, normocephalic, normal inspection - Eye Eye exam: Present: normal appearance, PERRL, EOMI. Absent: scleral icterus, conjunctival injection, nystagmus, miosis, mydriasis, periorbital swelling, periorbital tenderness - ENT ENT exam: mucous membranes dry - Neck Neck exam: Present: normal inspection, full ROM, trachea midline. Absent: tenderness, meningismus, lymphadenopathy - Chest Chest inspection: Present: normal inspection, symmetric chest wall rise. Absent : tenderness - Respiratory Respiratory exam: Present: wheezes, prolonged expiratory phase. Absent: respiratory distress, stridor - Expanded Respiratory Exam Location: wheezes: Left, Right, Upper (anterior and posterior - insp and exp), rhonchi: Left, Right, Lower - Cardiovascular Cardiovascular exam: Present: regular rate, normal rhythm - Abdominal Exam Abdominal exam: Present: soft, Non-Tender. Absent: distention - Extremities Exam Extremities exam: Present: normal inspection, normal capillary refill. Absent: pedal edema - Back Exam Back exam: Present: normal inspection - Neurological Exam Neurological exam: Present: alert, oriented X3, CN II-XII intact - Psychiatric Psychiatric exam: Present: normal affect, normal mood - Skin Skin exam: Present: warm, dry, intact, normal color Course Course Narrative: Patient presents from assisted living facility by squad for evaluation of weakness and possible pneumonia. Initially it was not clear if the patient was known to have pneumonia or if she had symptoms concerning for pneumonia. The latter was found to be the case. Patient is a poor historian but is not confused at this time. She describes worsening dyspnea and cough with generalized weakness for several days (Two days per Triage report). She had cataract surgery last Tuesday and is concerned that she "Caught the flu" when she was recovering. She denies fever, chills, nausea or vomiting. She also denies vision changes, pain with movement of the eyes, headache, nasal congestion, epistaxis, or rhinorrhea. On exam she is mildly tachypneic with wheezing and coarse rhonchi. Heart sounds are normal. She has mild tenderness to percussion of the left maxillary sinus. No pain with Full EOM's. No facial erythema or edema. No vision complaints. CT's, CXR and labs ordered. Case discussed with Dr. Lockwood. He has reviewed the EKG, examined the patient, and agrees with the assessment and plan. CT of head and orbits read by rad as no acute disease. EKG shows sinus arhythmia , essentially unchanged compared to previous. CXR does not show pneumonia or vascular congestion. Patient received two nebs enroute and one here. This "helped some" per patient. She is no longer tachypneic, has not been hypoxic - on 3L nasal canula here and at home. She has had no fever and xray does not show an infiltrate so doubltful this is pneumonia. She has no peripheral edema, no rales, no xray findings concerning for edema and she had a normal echo (EF 60 %) this past September, so CHF is unlikely. Suspect COPD exacerbation. Possibly bronchitis. Patient is weak - generally and has had a recent surgery. She is not a good candidate to return to an assisted living facility. Vital Signs Temperature 99.1 F 02/12/17 08:56 Pulse Rate 68 02/12/17 08:56 Respiratory Rate 20 02/12/17 08:56 Blood Pressure 141/53 02/12/17 08:56 O2 Sat by Pulse Oximetry 97 02/12/17 08:56 Temperature 98.0 F 02/12/17 12:15 Pulse Rate 55 02/12/17 12:15 Respiratory Rate 7 02/12/17 12:15 Blood Pressure 126/65 02/12/17 12:15 O2 Sat by Pulse Oximetry 97 02/12/17 12:15 Oxygen Delivery Oxygen Delivery Nasal Cannula Shortness of Breath/Dyspnea - Medical Records Medical records reviewed: Yes I reviewed the patient's medical records. - Lab Data Lab results reviewed: Yes I reviewed the patient's lab results. Lab results narrative: Laboratory Last Values WBC 5.0 K/mcL (4.3-11.1) 02/12/17 09:15 RBC 4.15 M/mcL (3.82-4.97) 02/12/17 09:15 Hgb 11.9 g/dL (11.5-15.4) 02/12/17 09:15 Hct 37.7 % (35.3-44.9) 02/12/17 09:15 MCV 90.8 fL (83.0-100.0) 02/12/17 09:15 MCH 28.7 pg (28.0-33.3) 02/12/17 09:15 MCHC 31.6 g/dL (31.6-35.5) 02/12/17 09:15 RDW 13.3 % (11.5-14.5) 02/12/17 09:15 Plt Count 153 K/mcL (140-400) 02/12/17 09:15 MPV 10.4 fL (9.4-12.4) 02/12/17 09:15 Immature Gran % 0.4 % (0-4) 02/12/17 09:15 Seg Neutrophils % 56.5 % 02/12/17 09:15 Lymphocytes % 25.4 % 02/12/17 09:15 Monocytes % 14.9 % 02/12/17 09:15 Eosinophils % 2.2 % 02/12/17 09:15 Basophils % 0.6 % 02/12/17 09:15 Neutrophils # 2.8 K/mcL (1.6-8.9) 02/12/17 09:15 Lymphocytes # 1.3 K/mcL (0.6-4.6) 02/12/17 09:15 Monocytes # 0.8 K/mcL (0.0-1.3) 02/12/17 09:15 Eosinophils # 0.1 K/mcL (0.0-0.6) 02/12/17 09:15 Basophils # 0.0 K/mcL (0.0-0.2) 02/12/17 09:15 PT 11.3 Seconds (9.4-12.1) 02/12/17 09:15 INR 1.1 02/12/17 09:15 APTT 30.6 Seconds (26.0-36.0) 02/12/17 09:15 Sodium 137 mEq/L (136-145) 02/12/17 09:15 Potassium 3.6 mEq/L (3.5-5.1) 02/12/17 09:15 Chloride 97 mEq/L (98-107) L 02/12/17 09:15 Carbon Dioxide 26 mEq/L (23-29) 02/12/17 09:15 BUN 21 mg/dL (8-23) 02/12/17 09:15 Creatinine 1.39 mg/dL (0.60-1.20) H 02/12/17 09:15 Est GFR ( Amer) 45 (> 60) L 02/12/17 09:15 Est GFR (Non-Af Amer) 37 (> 60) L 02/12/17 09:15 BUN/Creatinine Ratio 15 (6-26) 02/12/17 09:15 Glucose 209 mg/dL (70-105) H 02/12/17 09:15 Calculated Osmolality 293 (280-300) 02/12/17 09:15 Lactic Acid 1.6 mmol/L (0.5-2.2) 02/12/17 09:15 Calcium 8.5 mg/dL (8.6-10.3) L 02/12/17 09:15 Troponin I < 0.03 ng/mL (< 0.04) 02/12/17 09:15 B-Natriuretic Peptide 180 pg/mL (Less than 100) H 02/12/17 09:15 Result diagrams: 02/12/17 09:15 02/12/17 09:15 Lab Results 02/12/17 02/12/17 02/12/17 Range/Units 09:15 09:15 09:15 WBC 5.0 (4.3-11.1) K/mcL RBC 4.15 (3.82-4.97) M/mcL Hgb 11.9 (11.5-15.4) g/dL Hct 37.7 (35.3-44.9) % MCV 90.8 (83.0-100.0) fL MCH 28.7 (28.0-33.3) pg MCHC 31.6 (31.6-35.5) g/dL RDW 13.3 (11.5-14.5) % Plt Count 153 (140-400) K/mcL MPV 10.4 (9.4-12.4) fL Immature Gran % 0.4 (0-4) % Seg Neutrophils % 56.5 % Lymphocytes % 25.4 % Monocytes % 14.9 % Eosinophils % 2.2 % Basophils % 0.6 % Neutrophils # 2.8 (1.6-8.9) K/mcL Lymphocytes # 1.3 (0.6-4.6) K/mcL Monocytes # 0.8 (0.0-1.3) K/mcL Eosinophils # 0.1 (0.0-0.6) K/mcL Basophils # 0.0 (0.0-0.2) K/mcL PT (9.4-12.1) Seconds INR APTT (26.0-36.0) Seconds Sodium 137 (136-145) mEq/L Potassium 3.6 (3.5-5.1) mEq/L Chloride 97 L (98-107) mEq/L Carbon Dioxide 26 (23-29) mEq/L BUN 21 (8-23) mg/dL Creatinine 1.39 H (0.60-1.20) mg/dL Est GFR ( Amer) 45 L (> 60) Est GFR (Non-Af Amer) 37 L (> 60) BUN/Creatinine Ratio 15 (6-26) Glucose 209 H (70-105) mg/dL Calculated Osmolality 293 (280-300) Lactic Acid 1.6 (0.5-2.2) mmol/L Calcium 8.5 L (8.6-10.3) mg/dL Troponin I (< 0.04) ng/mL B-Natriuretic Peptide (Less than 100) pg/mL 02/12/17 02/12/17 02/12/17 Range/Units 09:15 09:15 09:15 WBC (4.3-11.1) K/mcL RBC (3.82-4.97) M/mcL Hgb (11.5-15.4) g/dL Hct (35.3-44.9) % MCV (83.0-100.0) fL MCH (28.0-33.3) pg MCHC (31.6-35.5) g/dL RDW (11.5-14.5) % Plt Count (140-400) K/mcL MPV (9.4-12.4) fL Immature Gran % (0-4) % Seg Neutrophils % % Lymphocytes % % Monocytes % % Eosinophils % % Basophils % % Neutrophils # (1.6-8.9) K/mcL Lymphocytes # (0.6-4.6) K/mcL Monocytes # (0.0-1.3) K/mcL Eosinophils # (0.0-0.6) K/mcL Basophils # (0.0-0.2) K/mcL PT 11.3 (9.4-12.1) Seconds INR 1.1 APTT 30.6 (26.0-36.0) Seconds Sodium (136-145) mEq/L Potassium (3.5-5.1) mEq/L Chloride (98-107) mEq/L Carbon Dioxide (23-29) mEq/L BUN (8-23) mg/dL Creatinine (0.60-1.20) mg/dL Est GFR ( Amer) (> 60) Est GFR (Non-Af Amer) (> 60) BUN/Creatinine Ratio (6-26) Glucose (70-105) mg/dL Calculated Osmolality (280-300) Lactic Acid (0.5-2.2) mmol/L Calcium (8.6-10.3) mg/dL Troponin I < 0.03 (< 0.04) ng/mL B-Natriuretic Peptide 180 H (Less than 100) pg/mL - Radiology Data Radiology results reviewed: Yes I reviewed the patient's radiology results. Chest X-Ray 02/12/17 08:59 IMPRESSION: 1. No acute abnormality. D/ / Juan Donaldson MD / Juan Donaldson MD Interpreting Provider: Juan Donaldson MD Head CT 02/12/17 09:05 IMPRESSION: No acute intracranial abnormality. D/ / Wilton Cano MD / Wilton Cano MD Interpreting Provider: Wilton Cano MD Orbit CT 02/12/17 09:05 IMPRESSION: No acute abnormality of the orbits. D/ / Shreyas Cano MD / Shreyas Cano MD Interpreting Provider: Shreyas Cano MD - EKG Data EKG attestation: Yes I reviewed and interpreted this EKG. EKG shows normal: Reports: axis, QRS complexes Rhythm: Reports: arrhythmia (sinus) When compared to previous EKG there are: no significant changes Interpretation: Reports: unchanged when compared to prior tracing (date) (09/23)
[2017-02-12] MEDS: Ipratropium/Albuterol Neb 3 ML IH ONE ×2 (09:14→09:20)
[2017-02-12] MEDS: 0.9 % Sodium Chloride 1,000 ML IVC ONE ×2 (09:15→13:06)
[2017-02-12 09:27] LABS: Basophils % 0.6 %; Eosinophils # 0.1 K/mcL (0.0-0.6); Eosinophils % 2.2 %; Hematocrit 37.7 % (35.3-44.9); Hemoglobin 11.9 g/dL (11.5-15.4); Immature Granulocytes % 0.4 % (0-4); Lymphocytes # 1.3 K/mcL (0.6-4.6); Lymphocytes % 25.4 %; Mean Corpuscular HGB Conc 31.6 g/dL (31.6-35.5); Mean Corpuscular Hemoglobin 28.7 pg (28.0-33.3); Mean Corpuscular Volume 90.8 fL (83.0-100.0); Mean Platelet Volume 10.4 fL (9.4-12.4); Monocytes # 0.8 K/mcL (0.0-1.3); Monocytes % 14.9 %; Neutrophils # 2.8 K/mcL (1.6-8.9); Platelet Count 153 K/mcL (140-400); Red Blood Count 4.15 M/mcL (3.82-4.97); Red Cell Distribution Width 13.3 % (11.5-14.5); Segmented Neutrophils % 56.5 %
[2017-02-12 09:33] LABS: Calcium 8.5 mg/dL (8.6-10.3); INR 1.1; Potassium 3.6 mEq/L (3.5-5.1); Prothrombin Time 11.3 Seconds (9.4-12.1)
[2017-02-12 09:36] LABS: Activated Partial Thrombo Time 30.6 Seconds (26.0-36.0)
--- NOTE | 2017-02-12 10:11 | Emergency Department Note ---
START Narrative - START START: I examined this patient and my medical decision-making was reviewed with the PA / I agree with the documented findings, disposition and treatment plan as described except to the extent set forth below. 76-year-old female presented to the ER with weakness. Patient lives in assisted living. States she has been unable to get up out of the chair and get over to her wheelchair. Today she slid out of her chair while leaning over. States she was too weak to get herself back up. She has no focal symptoms. We will do a weakness workup and anticipate admission as she is unable to care for herself in assisted living. With feel that she would benefit from a higher level of nursing care.
--- NOTE | 2017-02-12 10:44 | Event Note ---
Date of Encounter: 02/12/17 Time of Encounter: 10:42 Patience and examined with nurse practitioner. Acute COPD exacerbation. Will start IV steroids nebulizer treatments and antibiotics. She had a recent cataract surgery on the left eye. She currently has left frontal headache and some pain in the left maxillary area which was also present prior to the cataract surgery. CT scan of the face is pending. Will also get a head CT and check ESR. She denies loss of vision. Full code
[2017-02-12] MEDS ORDERED: Acetaminophen 325 MG TABLET PO PRN (11:03)
[2017-02-12] MEDS ORDERED: Naloxone 0.4 MG/ML INJ IVP PRN (11:03)
[2017-02-12] MEDS ORDERED: Ondansetron 4 MG/2 ML VIAL IVP PRN (11:03)
--- NOTE | 2017-02-12 11:27 | Internal Med History&Physical ---
Date of Encounter: 02/12/17 Time of Encounter: 10:30 Assessment and Plan (1) Acute exacerbation of CHF (congestive heart failure) Current visit: Yes Status: Acute Acute exacerbation of CHF complicated by exacerbation of COPD. SOB/dyspnea for past week. Pedal edema. BNP of 180 on admission. Echocardiogram on 09/26/16 shows LVEF 60%, normal left ventricular size and systolic function., there is evidence of moderate diastolic dysfunction of the left ventricle, normal right ventricular size and function, mild mitral regurgitation, no pulmonary hypertension. Pt. takes PO lasix. Will hold PO and give IVP lasix 20 mg daily. DuoNebs Q6 scheduled. 1.5L daily fluid restriction. Continuous cardiac telemetry. Supplemental O2 w/titration and SpO2 monitoring. Monitor I&O and daily weight. Pt. discussed w/Dr. Daniel who is in agreement w/plan of care. Pt. is at high risk for respiratory/cardiac distress d/t current exacerbations of COPD/CHF, SOB/dyspnea, hx of previous CVAs, and risk factors. Observation. Qualifiers: Congestive heart failure type: diastolic Qualified Code(s): I50.33 - Acute on chronic diastolic (congestive) heart failure (2) Acute exacerbation of chronic obstructive pulmonary disease (COPD) Current visit: Yes Status: Acute Acute exacerbation of COPD complicated by acute exacerbation of CHF. Pt. reports SOB/dyspnea for past week. Pt. is former smoker smoking 1 PPD and quitting 5 years ago. 40 mg Solu-Medrol IVP every 8. Will monitor pt. for hyperglycemia d/t steroids. Supplemental O2 w/titration and SpO2 monitoring. DuoNebs Q6 scheduled. Azithromycin 500 mg daily for infection coverage r/t bronchitis. Blood cultures and sputum culture ordered. RVP ordered. Monitor pt. and f/u labs. (3) Decreased appetite Current visit: Yes Status: Acute Acute decreased appetite for the past several weeks. Nutrition consult ordered for PO supplementation. Monitor I&O and daily weight. (4) Fall Current visit: Yes Status: Acute Hx of acute on chronic falls. Pt. reports falling this morning when she slid out of her lift chair. Denies injury, hitting head, or syncope. Falls/safety precautions. PT/OT consults. Qualifiers: Encounter type: initial encounter Qualified Code(s): W19.XXXA - Unspecified fall, initial encounter (5) Generalized weakness Current visit: Yes Status: Acute Acute generalized weakness r/t current SOB/dyspnea and residual right-sided weakness. Falls/safety precautions. PT/OT consult ordered. Nutrition consult ordered. (6) HTN (hypertension) Current visit: Yes Status: Chronic Hx of chronic HTN. Monitor pt. and VS. Continue patient's Norvasc and Cozaar. Qualifiers: Hypertension type: essential hypertension Qualified Code(s): I10 - Essential (primary) hypertension (7) HLD (hyperlipidemia) Current visit: Yes Status: Chronic Hx of chronic HLD. Lipid panel in a.m. labs. Add Lipitor 20 mg HS. Qualifiers: Hyperlipidemia type: pure hypercholesterolemia Qualified Code(s): E78.00 - Pure hypercholesterolemia, unspecified; E78.0 - Pure hypercholesterolemia (8) Anxiety and depression Current visit: Yes Status: Chronic Hx of chronic anxiety and depression. Continue patient's Valium and Prozac. (9) Type 2 diabetes mellitus Current visit: Yes Status: Chronic Hx of chronic diabetes controlled by oral antihyperglycemic medications. Patient states she currently does not take any oral medications for diabetes. BG checks ACHS. A1c in a.m. labs. Low-dose correction insulin sliding scale w/ hypoglycemic protocol. 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 Pt. reports residual right-sided weakness from CVAs. Falls/safety precautions. PT/OT consults ordered to assess pt. for strength, stability, and safety. Continue aspirin therapy and Plavix. Qualifiers: CVA mechanism: unspecified Qualified Code(s): I63.9 - Cerebral infarction, unspecified (11) DVT prophylaxis Current visit: Yes Status: Acute Heparin 5,000 units SQ Q8 for DVT prophylaxis. Monitor pt. for signs of bleeding. Internal Medicine - H&P: HPI Chief complaint: SOB/Dyspnea Admitted From: Emergency Dept Plans for Post Hospital Care: Home History of present illness: Ms. Wong is a 76 year old female with medical history of COPD, CHF, CVA 2 one year ago, diabetes controlled with oral antihyperglycemic medications, GERD, HLD , HTN, TIA, and CJD presents from the ED with chief complaint of shortness of breath and dyspnea past week. Patient and her daughter state that the patient has been increasingly short of breath over the past 2-3 days. Patient reports she had cataract surgery on left eye and experienced mild orbital pain for the past 2 days. Patient also slid out of her lift chair today but denies any injuries. Patient reports she has right-sided weakness as residual from CVAs one year ago. Patient reports many case of flu pneumonia at her assisted living facility. Patient reports weakness, dizziness, and reduced appetite for the past few weeks but denies recent illness, fever, chills, nausea, vomiting, changes in vision, headache, chest pain, palpitations, numbness, tingling, abdominal pain, diarrhea, constipation, pre-syncope, or syncope. Past Med Surg Social Fam HX - Past Medical History Source: patient, old records reviewed, obtained from family Medical history: COPD, CVA (x2 approximately 1 year ago), diabetes (Controlled w /oral), GERD, hyperlipidemia, hypertension, renal disease, TIA Psychiatric history: anxiety, depression - Past Surgical History Surgical History: cholecystectomy, hysterectomy (Total), orthopedic, other ( Back surgery) - Social History Smoking Status: Former smoker Packs per day: 1 PPD - reports quitting 5 years ago Smokeless Tobacco Status: No Alcohol use: none Drug use: none Current living situation: Assisted Living Activity Level: Uses cane/walker, Wheelchair bound Recent Out of Country Travel Within the Last 8 Weeks: No Exposure or Possible Exposure to Illness During Travel: No - Family History Father Race: Family Member Ethnicity: Non- Living Status: Age at : 104 Cause of : Old age Hx Family Medical Disorders: No Brother Race: Family Member Ethnicity: Non- Living Status: Age at : 75 Cause of : [place] Hx Family Cardiac Disorders: Yes ([place], Bi-pass, CHF, CAD) Mother Adopted: No Race: Family Member Ethnicity: Non- Living Status: Age at : 72 Cause of : Stroke Hx Family Cardiac Disorders: Yes (Stroke, [place]) Hx Family Endocrine Disorder: Yes (Diabetes) Sister Race: Family Member Ethnicity: Non- Living Status: Age at : 66 Cause of : IN Hx Family Cardiac Disorders: Yes ([place], CAD) Internal Medicine - H&P: Meds Aspirin 81 mg PO DAILY 09/07/15 [History] Furosemide [Lasix] 40 mg PO BID PRN 09/07/15 [History] Potassium Chloride [K-Tab ER] 10 meq PO BID 09/07/15 [History] Cyanocobalamin (B-12) [Vitamin B12] 500 mcg PO DAILY tablet 09/10/15 [Rx] Docusate [Colace] 100 mg PO BID PRN #0 capsule 09/10/15 [Rx] Clopidogrel [Plavix] 75 mg PO DAILY 12/29/15 [History] Losartan [Cozaar] 25 mg PO BID 12/29/15 [History] Ergocalciferol (VITAMIN D2) [Vitamin D2] 50,000 unit PO WE 01/26/16 [History] FLUoxetine HCl [Prozac] 40 mg PO DAILY 01/26/16 [History] Oxygen 3 l NS AD 01/26/16 [History] Oxycodone HCl/Acetaminophen [Percocet 10-325 mg Tablet] 1 tab PO BID PRN #14 [Rx] amLODIPine [Norvasc] 5 mg PO DAILY tab 09/28/16 [Rx] diazePAM [Valium] 10 mg PO BID #14 tablet 09/28/16 [Rx] Bisacodyl [Dulcolax] 10 mg RC DAILY PRN 02/12/17 [History] Budesonide Neb [Pulmicort Neb] 0.25 mg IH QID 02/12/17 [History] Carbamide Peroxide 1 drop OT DAILY 02/12/17 [History] Carvedilol [Carvedilol] 3.125 mg PO BID 02/12/17 [History] Guaifenesin [Mucus Relief] 400 mg PO DAILY 02/12/17 [History] Ipratropium/Albuterol Neb [Duoneb] 3 ml IH Q6HR 02/12/17 [History] Nystatin POWDER [Nystop] 1 appl TP BID 02/12/17 [History] 3 Allergy/AdvReac Type Severity Reaction Status Date / Time Iodinated Contrast- Oral and AdvReac Hives, Verified 01/26/16 15:58 IV Dye Nausea, [Iodinated Contrast Media - Vomiting Oral and] Penicillins AdvReac Itching Verified 01/26/16 15:58 All Systems PM: A 10-system review of systems was performed and is negative for pertinent findings except as documented above in the HPI. - Constitutional Constitutional: as per HPI, anorexia, weakness, no chills, no fever(s), no night sweats - EENT Eyes: no change in vision, no discharge, no pain, no photophobia Ears: no ear discharge, no ear pain, no tinnitus Nose, mouth and throat: no dysphagia, no nasal discharge, no neck pain, no sore throat - Breasts Breasts: as per HPI - Cardiovascular Cardiovascular ROS IM: as per HPI, dyspnea, dyspnea on exertion, edema, no chest pain, no diaphoresis, no lightheadedness, no palpitations, no syncope - Respiratory Respiratory: as per HPI, cough, dyspnea, dyspnea on exertion, wheezing, change in phlegm color, no excessive phlegm production - Gastrointestinal Gastrointestinal: no abdominal pain, no diarrhea, no hematemesis, no hematochezia, no melena, no nausea, no vomiting - Genitourinary Genitourinary: no change in urinary stream, no dysuria, no flank pain, no hematuria Menstruation: as per HPI, post hysterectomy - Musculoskeletal Musculoskeletal ROS IM: no numbness, no tingling - Integumentary Integumentary IM: no rash, no unusual bruising - Neurological Neurological ROS: as per HPI, dizziness, weakness, no confusion, no convulsions , no focal weakness, no numbness, no tingling, no tremor(s) - Psychiatric Psychiatric: as per HPI - Endocrine Endocrine IM: as per HPI - Hematologic/Lymphatic Hematologic/Lymphatic: no easy bruising - Allergic/Immunologic Allergic/Immunologic: as per HPI - Constitutional Vitals: Temp Pulse Resp BP Pulse Ox 99.1 F 61 18 111/81 96 02/12/17 08:56 02/12/17 10:48 02/12/17 10:48 02/12/17 10:48 02/12/17 10:48 General appearance: Present: cooperative, mild distress (Respiratory), A&O X 3, pleasant, obese, answers questions appropriately - Head Head exam: Present: atraumatic, normal inspection, normocephalic - Eye Eye exam: Present: PERRL, conjuntiva pink, sclera anicteric Pupils: Present: PERRL - ENT ENT exam: Present: normal exam - Neck Neck exam general surgery: Present: normal inspection - Respiratory Respiratory exam: Present: accessory muscle use, wheezes - Cardiovascular Cardiovascular exam: Present: irregular rhythm - GI/Abdominal GI/Abdominal exam: Present: normal bowel sounds, soft, no peritoneal signs. Absent: distended, tenderness - Rectal Rectal exam: Present: deferred - Additional comments: exam deferred. - Extremities Exam Extremities exam: Present: pedal edema (Non-pitting bilaterally), warm, radial pulses palpable and symmetrical. Absent: calf tenderness, cyanotic - Back Exam Back exam: Present: normal inspection - Neurological Exam Neurological exam: Present: CN II-XII intact, oriented X3, no focal deficits. Absent: pronater drift, facial droop, speech deficit - Psychiatric Psychiatric exam: Present: normal affect, normal mood - Skin Skin exam: Present: dry, intact Internal Med - H&P Results - Labs CBC & Chem 7: 02/12/17 09:15 02/12/17 09:15 - EKG Data Prior EKG available for review: yes EKG comments: 02/12/17 11:35 EKG dated 09/25/16 shows sinus bradycardia. EKG dated 02/12/17 shows sinus arrhythmia. - Diagnostic Studies Chest x-ray Additional comments: Impressions Chest X-Ray 02/12/17 08:59 IMPRESSION: 1. No acute abnormality. D/ / Juan Donaldson MD / Juan Donaldson MD Interpreting Provider: Juan Donaldson MD CT scan - head Additional comments: Impressions Head CT 02/12/17 09:05 IMPRESSION: No acute intracranial abnormality. D/ / Wilton Cano MD / Wilton Cano MD Interpreting Provider: Wilton Cano MD Other Images Additional comments: Impressions Orbit CT 02/12/17 09:05 IMPRESSION: No acute abnormality of the orbits. D/ / Shreyas Cano MD / Shreyas Cano MD Interpreting Provider: Shreyas Cano MD
[2017-02-12] MEDS ORDERED: Benzonatate 100 MG CAPSULE PO PRN (11:33)
[2017-02-12] MEDS ORDERED: *HR* Dextrose 50 % in Water (Syg) 50 ML SYRINGE IVP PRN (11:45)
[2017-02-12] MEDS ORDERED: D5% in Water 1,000 ML IVC PRN (11:45)
[2017-02-12] MEDS ORDERED: Dextrose Gel 15 GM/37.5 ML TUBE PO PRN ×2 (11:45)
[2017-02-12] MEDS ORDERED: Bisacodyl 10 MG RECTAL SUPPOSITORY RC PRN (12:26)
[2017-02-12] MEDS: *HR* Heparin 5,000 UNIT/ML VIAL SQ SCH ×2 (13:12→22:26)
[2017-02-12] MEDS: Aspirin Enteric Coated 81 MG Tablet PO SCH (13:12)
[2017-02-12] MEDS: Furosemide 20 MG/2 ML VIAL IVP SCH (13:12)
[2017-02-12] MEDS: Cholecalciferol (D-3) 1,000 UNIT TABLET PO SCH (13:12)
[2017-02-12] MEDS: Azithromycin 500 MG in D5% in Water 250 ML IVPB SCH (13:13)
[2017-02-12 16:30] LABS: Adenovirus Not Detected (Not Detect); Bordetella Pertussis Not Detected (Not Detect); Chlamydophila pneumoniae Not Detected (Not Detect); Coronavirus 229E Not Detected (Not Detect); Coronavirus HKU1 Not Detected (Not Detect); Coronavirus NL63 Not Detected (Not Detect); Coronavirus OC43 Not Detected (Not Detect); Human Metapneumovirus Not Detected (Not Detect); Human Rhinovirus/Enterovirus Not Detected (Not Detect); Influenza A Subtype 2009 H1 Not Detected (Not Detect); Influenza A Untypeable Not Detected (Not Detect); Influenza B Not Detected (Not Detect); Mycoplasma pneumoniae Not Detected (Not Detect); Parainfluenza Virus 1 Not Detected (Not Detect); Parainfluenza Virus 2 Not Detected (Not Detect); Parainfluenza Virus 3 Not Detected (Not Detect); Parainfluenza Virus 4 Not Detected (Not Detect); Respiratory Syncytial Virus Not Detected (Not Detect)
[2017-02-12] MEDS: MethylPREDNISolone 40 MG/ML VIAL IVP SCH ×2 (17:10→23:59)
--- NOTE | 2017-02-12 17:11 | Event Note ---
Date of Encounter: 02/12/17 Time of Encounter: 17:00 Pt. has been nasal swabbed for influenza and found + for influenza A. Will begin Tamiflu 30 mg BID w/renal dosing d/t pts. current renal dysfunction. Patient isolation. Supportive care.
[2017-02-12] MEDS: Insulin LISPRO 300 UNITS/3 ML VIAL SQ SCH ×2 (17:12→22:26)
[2017-02-12] MEDS: Budesonide Neb 0.25 MG/2 ML IH SCH ×3 (17:16→23:45)
[2017-02-12] MEDS: Ipratropium/Albuterol Neb 3 ML IH SCH ×2 (17:20→21:02)
[2017-02-12 17:21] LABS: Bilirubin,Urine Negative (Negative); Blood,Urine Negative (Negative); Clarity,Urine Clear (Clear); Color,Urine Yellow (Yellow); Glucose,Urine (UA) Normal (Normal); Ketones,Urine Negative (Negative); Leukocyte Esterase,Urine Negative (Negative); Nitrite,Urine Negative (Negative); Protein,Urine Negative (Neg-Trace); Specific Gravity,Urine 1.009 (1.010-1.025); Urobilinogen,Urine Normal (Normal)
[2017-02-12] MEDS: Oseltamivir Phosphate 30 MG CAPSULE PO SCH ×2 (17:37→22:41)
[2017-02-12] MEDS ORDERED: Oseltamivir Phosphate 30 MG CAPSULE PO SCH (21:00)
[2017-02-12] MEDS: diazePAM 10 MG TABLET PO SCH (22:25)
[2017-02-12] MEDS: Nystatin POWDER 30 GM BOTTLE TP SCH (22:41)
[2017-02-12] MEDS: *HR* OxyCODONE/APAP 10/325 TABLET PO PRN (23:59)
[2017-02-13] MEDS: Ipratropium/Albuterol Neb 3 ML IH SCH ×4 (04:15→22:08)
[2017-02-13] MEDS: Budesonide Neb 0.25 MG/2 ML IH SCH ×4 (04:15→22:08)
[2017-02-13 05:19] LABS: Albumin 3.6 g/dL (3.5-5.7); Albumin/Globulin Ratio 0.9 (1.1-2.2); Bilirubin,Total 0.5 mg/dL (0.3-1.0); Calcium 9.1 mg/dL (8.6-10.3); Magnesium 2.2 mg/dL (1.6-2.6); Potassium 4.9 mEq/L (3.5-5.1); Total Protein 7.6 g/dL (6.4-8.9)
[2017-02-13 05:27] LABS: Basophils % 0.4 %; Hematocrit 39.1 % (35.3-44.9); Hemoglobin 12.6 g/dL (11.5-15.4); Immature Granulocytes % 0.6 % (0-4); Immature Platelets 6.7 % (1.1-6.1); Lymphocytes # 0.9 K/mcL (0.6-4.6); Lymphocytes % 17.8 %; Mean Corpuscular HGB Conc 32.2 g/dL (31.6-35.5); Mean Corpuscular Hemoglobin 28.6 pg (28.0-33.3); Mean Corpuscular Volume 88.7 fL (83.0-100.0); Mean Platelet Volume 11.2 fL (9.4-12.4); Monocytes # 0.1 K/mcL (0.0-1.3); Monocytes % 2.7 %; Neutrophils # 3.7 K/mcL (1.6-8.9); Platelet Count 153 K/mcL (140-400); Red Blood Count 4.41 M/mcL (3.82-4.97); Red Cell Distribution Width 13.1 % (11.5-14.5); Segmented Neutrophils % 78.5 %
[2017-02-13] MEDS: *HR* Heparin 5,000 UNIT/ML VIAL SQ SCH ×3 (05:44→22:21)
--- NOTE | 2017-02-13 08:55 | Internal Med Progress Note ---
Date of Encounter: 02/13/17 Time of Encounter: 08:30 - Assessment and plan (1) Acute exacerbation of chronic obstructive pulmonary disease (COPD) Current Visit: Yes Status: Acute Assessment and plan: Acute exacerbation of COPD worsened by acute exacerbation of CHF. Patient reports dyspnea, shortness of breath, weakness for the last 9-10 days. He is a former smoker. Patient with audible wheezing and rhonchi. Continue DuoNeb, Zithromax 500 mg IV daily, IV Solu-Medrol, and oxygen, titrate to maintain sats greater than 92%. Respiratory viral panel ordered and patient was positive for Flu A. Patient only wears 3 L of oxygen at home and is not above baseline use. Monitor for hyperglycemia with steroid use. Chest X-Ray 02/12/17 08:59 IMPRESSION: 1. No acute abnormality. D/ / Juan Donaldson MD / Juan Donaldson MD Interpreting Provider: Juan Donaldson MD (2) Acute exacerbation of CHF (congestive heart failure) Current Visit: Yes Status: Acute Assessment and plan: Acute exacerbation of diastolic CHF, worsened by exacerbation of COPD. Shortness of breath, dyspnea, weakness for last 9-10 days. Patient reports increased pedal edema. Chest x-ray is essentially negative. Patient had echocardiogram in September, that showed preserved ejection fraction and moderate LV DD, mild MR. BNP is only mildly elevated at 180. Hold home dose of po Lasix and give Lasix IVP 20 mg daily. Cardiac telemetry Oxygen at 3 L by nasal cannula. Patient wears 3 L at home continuous. Monitor I&O, daily weights, 1.5 L fluid restriction. Chest X-Ray 02/12/17 08:59 IMPRESSION: 1. No acute abnormality. D/ / Juan Donaldson MD / Juan Donaldson MD Interpreting Provider: Juan Donaldson MD Qualifiers: Congestive heart failure type: diastolic Qualified Code(s): I50.33 - Acute on chronic diastolic (congestive) heart failure (3) Influenza A Current Visit: Yes Status: Acute Assessment and plan: Supportive treatment. Tamiflu 30 mg by mouth twice a day for renal dosing. /10 doses given. (4) Frequent falls Current Visit: Yes Status: Acute Assessment and plan: History of chronic falls. Patient fell morning of admission when she slid out of her lift chair. She denies hitting her head, denies any injury or pain to any joints, denies syncope. Head CT was negative. Continue fall precautions and continued monitoring for safety. PT/OT evaluations and pending. (5) Diabetes Current Visit: Yes Status: Chronic Assessment and plan: Chronic. Sliding-scale insulin, diabetic diet, Accu-Cheks before meals and at bedtime Close monitoring for hyperglycemia steroid use. A1c ordered for morning. 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 Monitor labs per orders. Continue home medications. 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 She reports residual right-sided weakness with increased falls. Plan as above for falls. Qualifiers: CVA mechanism: unspecified Qualified Code(s): I63.9 - Cerebral infarction, unspecified (8) Generalized weakness Current Visit: Yes Status: Acute Assessment and plan: Weakness related to poor by mouth intake, CHF, COPD exacerbations, influenza A. Supportive treatment Nutrition consulted Fall precautions and PT/OT evaluations Continue gentle IV hydration prn (9) Decreased appetite Current Visit: Yes Status: Acute Assessment and plan: She reports she has not been feeling well enough to eat. Nutrition consulted. Monitor I&O and daily weights. (10) CKD (chronic kidney disease) stage 3, GFR 30-59 ml/min Current Visit: Yes Status: Chronic Assessment and plan: Patient with serum creatinine of 1.47 and GFR of 34, slightly worse than on admission. Encourage by mouth fluid intake within 1.5 L restriction Avoid nephrotoxins Continue to monitor labs and consider hold on IV Lasix (11) Obesity (BMI 30.0-34.9) Current Visit: Yes Status: Acute Assessment and plan: Chronic. Lifestyle modifications. (12) DVT prophylaxis Current Visit: Yes Status: Acute Assessment and plan: Subcutaneous heparin. Encourage patient up to bedside and ambulate in the room as tolerated. - Subjective Interval history: He was seen and assessed at bedside at 8:30 AM. She reports onset of weakness, cough, cold symptoms and to 10 days ago. Patient normally wears 3 L oxygen at home. She has audible wheezing and rhonchi heard from the doorway. She denies any headache or blurred vision. She denies chest pain or abdominal pain. She reports intermittent nausea. She denies any vomiting or diarrhea. Patient states that she feels awful and was afraid that we are going to discharge her today. - Constitutional Vitals: Temp Pulse Resp BP Pulse Ox 97.5 F L 67 15 145/75 98 02/13/17 07:37 02/13/17 07:37 02/13/17 07:37 02/13/17 07:37 02/13/17 07:37 General appearance: Present: cooperative, mild distress (Respiratory), A&O X 3, pleasant, obese, answers questions appropriately - Head Head exam: Present: atraumatic, normal inspection, normocephalic - Eye Eye exam: Present: normal appearance, conjuntiva pink, sclera anicteric - Neck Neck exam general surgery: Present: normal inspection, supple, trachea midline. Absent: lymphadenopathy, tenderness - Respiratory Respiratory exam: Present: rhonchi, wheezes. Absent: accessory muscle use, chest wall tenderness, decreased breath sounds, CTAB, rales, respiratory distress - Cardiovascular Cardiovascular exam: Present: RRR, +S1, +S2. Absent: diastolic murmur, gallop, rubs, systolic murmur - GI/Abdominal GI/Abdominal exam: Present: normal bowel sounds, soft. Absent: distended, hepatomegaly, tenderness - Extremities Exam Extremities exam: Present: pedal edema, warm, radial pulses palpable and symmetrical. Absent: calf tenderness, cyanotic, tenderness - Neurological Exam Neurological exam: Present: alert, oriented X3, no focal deficits. Absent: altered, facial droop, speech deficit - Skin Skin exam: Present: dry, intact, normal color, warm. Absent: rash Internal Medicine: Result - Labs CBC & Chem 7: 02/13/17 04:42 02/13/17 04:40 Labs: Short CBC 02/13/17 Range/Units 04:42 WBC 4.8 (4.3-11.1) K/mcL Hgb 12.6 (11.5-15.4) g/dL Hct 39.1 (35.3-44.9) % Plt Count 153 (140-400) K/mcL Neutrophils # 3.7 (1.6-8.9) K/mcL BMP 02/13/17 04:40 Sodium 134 L Potassium 4.9 D Chloride 100 Carbon Dioxide 23 BUN 31 H Creatinine 1.47 H Glucose 244 H Calcium 9.1 Liver Function 02/13/17 Range/Units 04:40 Total Bilirubin 0.5 (0.3-1.0) mg/dL AST 26 (13-39) Units/L ALT 14 (7-52) Units/L Alkaline Phosphatase 54 (34-104) Units/L Albumin 3.6 (3.5-5.7) g/dL Urine 02/12/17 Range/Units 17:00 Urine Color Yellow (Yellow) Urine Clarity Clear (Clear) Urine pH 6.0 (5.0-8.0) pH Units Ur Specific [place] 1.009 L (1.010-1.025) Urine Protein Negative (Neg-Trace) mg/dL Urine Glucose (UA) Normal (Normal) mg/dL - ABG Interpretation ABG results: PT/INR, D-dimer PT 11.3 Seconds (9.4-12.1) 02/12/17 09:15 Consult Discharge Plan - Plan Referrals: Rula Graham, TRANSIT MANAGER [Primary Care Provider] -
[2017-02-13] MEDS ORDERED: Aspirin 81 MG TAB.CHEW PO SCH (09:00)
[2017-02-13] MEDS: FLUoxetine 20 MG CAPSULE PO SCH (09:31)
[2017-02-13] MEDS: amLODIPine 5 MG TABLET PO SCH (09:31)
[2017-02-13] MEDS: diazePAM 10 MG TABLET PO SCH ×2 (09:31→20:10)
[2017-02-13] MEDS: Oseltamivir Phosphate 30 MG CAPSULE PO SCH ×2 (09:31→20:10)
[2017-02-13] MEDS: Cyanocobalamin (B-12) 1,000 MCG TABLET PO SCH (09:31)
[2017-02-13] MEDS: Cholecalciferol (D-3) 1,000 UNIT TABLET PO SCH (09:31)
[2017-02-13] MEDS: Furosemide 20 MG/2 ML VIAL IVP SCH (09:32)
[2017-02-13] MEDS: Insulin LISPRO 300 UNITS/3 ML VIAL SQ SCH ×4 (09:32→20:11)
[2017-02-13] MEDS: Aspirin Enteric Coated 81 MG Tablet PO SCH (09:32)
[2017-02-13] MEDS: MethylPREDNISolone 40 MG/ML VIAL IVP SCH ×3 (09:32→23:44)
[2017-02-13] MEDS: GUAIFENESIN 400 MG PO SCH (09:33)
[2017-02-13] MEDS: Nystatin POWDER 30 GM BOTTLE TP SCH ×2 (09:33→20:23)
[2017-02-13] MEDS: *HR* OxyCODONE/APAP 10/325 TABLET PO PRN ×2 (09:41→22:20)
[2017-02-13] MEDS: Azithromycin 500 MG in D5% in Water 250 ML IVPB SCH (12:12)
[2017-02-14] MEDS: Ipratropium/Albuterol Neb 3 ML IH SCH ×4 (04:00→21:00)
[2017-02-14] MEDS: Budesonide Neb 0.25 MG/2 ML IH SCH ×4 (04:00→21:00)
[2017-02-14] MEDS: *HR* Heparin 5,000 UNIT/ML VIAL SQ SCH ×3 (05:27→21:23)
[2017-02-14 06:30] LABS: Hematocrit 37.8 % (35.3-44.9); Hemoglobin 12.2 g/dL (11.5-15.4); Mean Corpuscular HGB Conc 32.3 g/dL (31.6-35.5); Mean Corpuscular Hemoglobin 28.5 pg (28.0-33.3); Mean Corpuscular Volume 88.3 fL (83.0-100.0); Mean Platelet Volume 11.1 fL (9.4-12.4); Platelet Count 196 K/mcL (140-400); Red Blood Count 4.28 M/mcL (3.82-4.97); Segmented Neutrophils % 84.4 %
[2017-02-14 06:31] LABS: Basophils % 0.1 %; Immature Granulocytes % 0.5 % (0-4); Lymphocytes % 10.4 %; Monocytes # 0.4 K/mcL (0.0-1.3); Monocytes % 4.6 %; Neutrophils # 8.1 K/mcL (1.6-8.9)
[2017-02-14 06:32] LABS: Hemoglobin A1C 6.2 %
[2017-02-14 06:38] LABS: Albumin 3.5 g/dL (3.5-5.7); Albumin/Globulin Ratio 0.9 (1.1-2.2); Bilirubin,Total 0.4 mg/dL (0.3-1.0); Calcium 9.2 mg/dL (8.6-10.3); Potassium 4.6 mEq/L (3.5-5.1); Total Protein 7.5 g/dL (6.4-8.9)
[2017-02-14] MEDS: diazePAM 10 MG TABLET PO SCH ×2 (08:24→21:22)
[2017-02-14] MEDS: amLODIPine 5 MG TABLET PO SCH (08:24)
[2017-02-14] MEDS: Cyanocobalamin (B-12) 1,000 MCG TABLET PO SCH (08:24)
[2017-02-14] MEDS: FLUoxetine 20 MG CAPSULE PO SCH (08:24)
[2017-02-14] MEDS: Oseltamivir Phosphate 30 MG CAPSULE PO SCH ×2 (08:24→21:20)
[2017-02-14] MEDS: Aspirin Enteric Coated 81 MG Tablet PO SCH (08:25)
[2017-02-14] MEDS: Furosemide 20 MG/2 ML VIAL IVP SCH (08:26)
[2017-02-14] MEDS: MethylPREDNISolone 40 MG/ML VIAL IVP SCH ×3 (08:26→23:32)
[2017-02-14] MEDS: GUAIFENESIN 400 MG PO SCH (08:27)
[2017-02-14] MEDS: Nystatin POWDER 30 GM BOTTLE TP SCH ×2 (08:30→21:22)
[2017-02-14] MEDS: *HR* HYDROcodone/Acet 5/325 mg TABLET PO PRN ×2 (08:43→21:25)
[2017-02-14] MEDS: Cholecalciferol (D-3) 1,000 UNIT TABLET PO SCH (08:43)
[2017-02-14] MEDS: Insulin LISPRO 300 UNITS/3 ML VIAL SQ SCH ×4 (08:44→21:28)
--- NOTE | 2017-02-14 09:21 | Internal Med Progress Note ---
Date of Encounter: 02/14/17 Time of Encounter: 08:45 - Assessment and plan (1) Acute exacerbation of chronic obstructive pulmonary disease (COPD) Current Visit: Yes Status: Acute Assessment and plan: Acute exacerbation of COPD worsened by acute exacerbation of CHF. Patient reports dyspnea, shortness of breath, weakness for the last 9-10 days. He is a former smoker. Patient with audible wheezing and rhonchi, positional dyspnea. Continue DuoNeb , Zithromax 500 mg IV daily, IV Solu-Medrol, and oxygen, titrate to maintain sats greater than 92%. She is also receiving IV Lasix for concurrent CHF exacerbation. Respiratory viral panel ordered and patient was positive for Flu A. Patient only wears 3 L of oxygen at home and is not above baseline use. Monitor for hyperglycemia with steroid use. Chest X-Ray 02/12/17 08:59 IMPRESSION: 1. No acute abnormality. D/ / Juan Donaldson MD / Juan Donaldson MD Interpreting Provider: Juan Donaldson MD (2) Acute exacerbation of CHF (congestive heart failure) Current Visit: Yes Status: Acute Assessment and plan: Acute exacerbation of diastolic CHF, worsened by exacerbation of COPD. Shortness of breath, dyspnea, weakness for last 9-10 days. Patient reports increased pedal edema. Little improvement today. Extremity edema appears to be improved slightly. Chest x-ray is essentially negative. Patient had echocardiogram in September, that showed preserved ejection fraction and moderate LV DD, mild MR. BNP is only mildly elevated at 180. Intake and output recording is not completed, most likely inaccurate. Hold home dose of po Lasix and give Lasix IVP 20 mg daily. Cardiac telemetry Oxygen at 3 L by nasal cannula. Patient wears 3 L at home continuous. Monitor I&O, daily weights, 1.5 L fluid restriction. Chest X-Ray 02/12/17 08:59 IMPRESSION: 1. No acute abnormality. D/ / Juan Donaldson MD / Juan Donaldson MD Interpreting Provider: Juan Donaldson MD Qualifiers: Congestive heart failure type: diastolic Qualified Code(s): I50.33 - Acute on chronic diastolic (congestive) heart failure (3) Influenza A Current Visit: Yes Status: Acute Assessment and plan: Supportive treatment: IV fluids, antitussives, 02, analgesic medications. Tamiflu 30 mg by mouth twice a day for renal dosing. 4/10 doses given. (4) Frequent falls Current Visit: Yes Status: Acute Assessment and plan: History of chronic falls. Patient fell morning of admission when she slid out of her lift chair. She denies hitting her head, denies any injury or pain to any joints, denies syncope. Head CT was negative. Patient reports that she lives in assisted living. She reports that due to general weakness and deconditioning, she has difficulty getting around. She reports there is carpeting in all of the hallways which makes it impossible for her to move her wheelchair. She states that many times she does not go to the cafeteria to eat meals due to difficulty with mobility. Continue fall precautions and continued monitoring for safety. PT/OT evaluations and pending. (5) Diabetes Current Visit: Yes Status: Chronic Assessment and plan: Chronic. Sliding-scale insulin, diabetic diet, Accu-Cheks before meals and at bedtime Close monitoring for hyperglycemia steroid use. 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 Monitor labs per orders. Continue home medications. 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 She reports residual right-sided weakness with increased falls. Plan as above for falls. Qualifiers: CVA mechanism: unspecified Qualified Code(s): I63.9 - Cerebral infarction, unspecified (8) Generalized weakness Current Visit: Yes Status: Acute Assessment and plan: Weakness related to poor by mouth intake, CHF, COPD exacerbations, influenza A, CVA, general deconditioning. Supportive treatment Nutrition consulted Fall precautions and PT/OT evaluations pending. Continue gentle IV hydration prn Patient could benefit from inpatient physical therapy due to above factors. She reports she is unable to get around in her building to get meals and do laundry. She says her carpet in the hallways and makes it hard for her to move her wheelchair due to weakness. (9) Decreased appetite Current Visit: Yes Status: Acute Assessment and plan: She reports she has not been feeling well enough to eat. Nutrition consulted. Monitor I&O and daily weights. Intake and output measurements are not recorded and inaccurate. (10) CKD (chronic kidney disease) stage 3, GFR 30-59 ml/min Current Visit: Yes Status: Chronic Assessment and plan: Patient with serum creatinine of 1.28 and GFR of 40, improving. Encourage by mouth fluid intake within 1.5 L restriction Avoid nephrotoxins Continue to monitor labs and consider hold on IV Lasix (11) Obesity (BMI 30.0-34.9) Current Visit: Yes Status: Acute Assessment and plan: Chronic. Lifestyle modifications. (12) DVT prophylaxis Current Visit: Yes Status: Acute Assessment and plan: Subcutaneous heparin BID. Encourage patient up to bedside and ambulate in the room as tolerated. (13) Physical deconditioning Current Visit: Yes Status: Acute Assessment and plan: PT/OT consultations pending. Plan as above. - Time Spent With Patient less than 15 minutes - Subjective Interval history: He was seen and assessed at bedside at 8:45 AM. She continues to have audible wheezing and conversational dyspnea. She reports still feeling very weak and states that she cannot go home in her current condition. She denies any headache or blurred vision. She denies chest pain or abdominal pain, no n/v/d, chills. - Constitutional Vitals: Temp Pulse Resp BP Pulse Ox 97.3 F L 60 16 157/80 97 02/14/17 06:41 02/14/17 06:41 02/14/17 06:41 02/14/17 06:41 02/14/17 06:41 General appearance: Present: cooperative, A&O X 3, pleasant, obese, answers questions appropriately Exam: Moderate distress. - Head Head exam: Present: atraumatic, normocephalic - Eye Eye exam: Present: normal appearance, conjuntiva pink, sclera anicteric - Neck Neck exam general surgery: Present: normal inspection, supple, trachea midline. Absent: lymphadenopathy, tenderness - Respiratory Respiratory exam: Present: CTAB, respiratory distress, rhonchi, wheezes. Absent : accessory muscle use, chest wall tenderness, decreased breath sounds, rales - Cardiovascular Cardiovascular exam: Present: RRR, +S1, +S2. Absent: diastolic murmur, gallop, rubs, systolic murmur - GI/Abdominal GI/Abdominal exam: Present: normal bowel sounds, soft. Absent: distended, hepatomegaly, tenderness - Extremities Exam Extremities exam: Present: normal capillary refill, pedal edema, warm, radial pulses palpable and symmetrical. Absent: calf tenderness, cyanotic, tenderness - Neurological Exam Neurological exam: Present: alert, oriented X3, no focal deficits. Absent: altered, facial droop, speech deficit - Skin Skin exam: Present: dry, intact, normal color, warm. Absent: rash Internal Medicine: Result - Labs CBC & Chem 7: 02/14/17 05:46 02/14/17 05:46 Labs: Short CBC 02/14/17 Range/Units 05:46 WBC 9.6 D (4.3-11.1) K/mcL Hgb 12.2 (11.5-15.4) g/dL Hct 37.8 (35.3-44.9) % Plt Count 196 (140-400) K/mcL Neutrophils # 8.1 (1.6-8.9) K/mcL BMP 02/14/17 05:46 Sodium 132 L Potassium 4.6 Chloride 98 Carbon Dioxide 26 BUN 40 H Creatinine 1.28 H Glucose 266 H Calcium 9.2 Liver Function 02/14/17 Range/Units 05:46 Total Bilirubin 0.4 (0.3-1.0) mg/dL AST 15 (13-39) Units/L ALT 11 (7-52) Units/L Alkaline Phosphatase 50 (34-104) Units/L Albumin 3.5 (3.5-5.7) g/dL - ABG Interpretation ABG results: PT/INR, D-dimer PT 11.3 Seconds (9.4-12.1) 02/12/17 09:15 Consult Discharge Plan - Plan Referrals: Rula Graham, PATIENT SERVICE COORDINATOR [Primary Care Provider] -
--- NOTE | 2017-02-14 10:15 | Electrocardiograph Report ---
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
[2017-02-14] MEDS: Azithromycin 500 MG in D5% in Water 250 ML IVPB SCH (13:56)
[2017-02-15] MEDS: Budesonide Neb 0.25 MG/2 ML IH SCH ×4 (03:34→21:52)
[2017-02-15] MEDS: Ipratropium/Albuterol Neb 3 ML IH SCH ×4 (03:34→21:52)
[2017-02-15] MEDS: *HR* Heparin 5,000 UNIT/ML VIAL SQ SCH ×3 (05:36→22:15)
[2017-02-15 05:59] LABS: Hematocrit 37.5 % (35.3-44.9); Hemoglobin 12.2 g/dL (11.5-15.4); Immature Granulocytes % 0.4 % (0-4); Lymphocytes # 1.1 K/mcL (0.6-4.6); Lymphocytes % 10.2 %; Mean Corpuscular HGB Conc 32.5 g/dL (31.6-35.5); Mean Corpuscular Hemoglobin 28.6 pg (28.0-33.3); Mean Platelet Volume 11.1 fL (9.4-12.4); Monocytes # 0.4 K/mcL (0.0-1.3); Monocytes % 3.3 %; Neutrophils # 9.5 K/mcL (1.6-8.9); Platelet Count 190 K/mcL (140-400); Red Blood Count 4.26 M/mcL (3.82-4.97); Red Cell Distribution Width 13.1 % (11.5-14.5); Segmented Neutrophils % 86.1 %
[2017-02-15 06:16] LABS: Albumin 3.4 g/dL (3.5-5.7); Albumin/Globulin Ratio 0.8 (1.1-2.2); Bilirubin,Total 0.5 mg/dL (0.3-1.0); Calcium 9.2 mg/dL (8.6-10.3); Globulin 4.1 g/dL (2.4-3.5); Potassium 4.8 mEq/L (3.5-5.1); Total Protein 7.5 g/dL (6.4-8.9)
[2017-02-15] MEDS: MethylPREDNISolone 40 MG/ML VIAL IVP SCH ×2 (08:13→17:00)
[2017-02-15] MEDS: Insulin LISPRO 300 UNITS/3 ML VIAL SQ SCH ×4 (08:13→22:15)
[2017-02-15] MEDS: FLUoxetine 20 MG CAPSULE PO SCH (08:14)
[2017-02-15] MEDS: diazePAM 10 MG TABLET PO SCH ×2 (08:14→22:15)
[2017-02-15] MEDS: Aspirin Enteric Coated 81 MG Tablet PO SCH (08:14)
[2017-02-15] MEDS: Furosemide 20 MG/2 ML VIAL IVP SCH (08:14)
[2017-02-15] MEDS: Cyanocobalamin (B-12) 1,000 MCG TABLET PO SCH (08:14)
[2017-02-15] MEDS: Cholecalciferol (D-3) 1,000 UNIT TABLET PO SCH (08:14)
[2017-02-15] MEDS: amLODIPine 5 MG TABLET PO SCH (08:14)
[2017-02-15] MEDS: Nystatin POWDER 30 GM BOTTLE TP SCH ×2 (08:15→22:16)
[2017-02-15] MEDS: Oseltamivir Phosphate 30 MG CAPSULE PO SCH ×2 (08:15→22:15)
[2017-02-15] MEDS: GUAIFENESIN 400 MG PO SCH (08:15)
[2017-02-15] MEDS: Azithromycin 500 MG in D5% in Water 250 ML IVPB SCH (12:10)
--- NOTE | 2017-02-15 17:26 | Internal Med Progress Note ---
Date of Encounter: 02/15/17 Time of Encounter: 09:15 - Assessment and plan (1) Acute exacerbation of chronic obstructive pulmonary disease (COPD) Current Visit: Yes Status: Acute Assessment and plan: Patient is doing better today. We will begin to taper steroids. Continue bronchodilators. Continue O2 supplementation. Currently on 2 L O2 supplementation via nasal cannula. If patient continues to do well, she will be discharged tomorrow to [facility] facility. (2) Acute exacerbation of CHF (congestive heart failure) Current Visit: Yes Status: Acute Assessment and plan: On intravenous Lasix. Will transition to oral Lasix. Renal function remains stable. Qualifiers: Congestive heart failure type: diastolic Qualified Code(s): I50.33 - Acute on chronic diastolic (congestive) heart failure (3) CKD (chronic kidney disease) stage 3, GFR 30-59 ml/min Current Visit: Yes Status: Chronic Assessment and plan: Creatinine 1.15. (4) Decreased appetite Current Visit: Yes Status: Acute (5) Diabetes Current Visit: Yes Status: Chronic Assessment and plan: Blood sugars are elevated. 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 Recommended placement to skilled rehabilitation. Patient will be discharged to skilled rehabilitation tomorrow if she continues to improve. (9) Influenza A Current Visit: Yes Status: Acute Assessment and plan: On Tamiflu. Complete 5 day treatment course (10) Physical deconditioning Current Visit: Yes Status: Acute - Subjective Interval history: Patient is awake and alert. Feeling better today. Shortness of breath is much improved. Tolerating diet well. No other new complaints at this time. - Constitutional Vitals: Temp Pulse Resp BP Pulse Ox 97.1 F L 61 15 157/68 97 02/15/17 16:26 02/15/17 16:26 02/15/17 16:26 02/15/17 16:26 02/15/17 16:26 General appearance: Present: cooperative, A&O X 3, pleasant, obese, answers questions appropriately - Respiratory Respiratory exam: Present: CTAB. Absent: accessory muscle use, rales, rhonchi, wheezes - Cardiovascular Cardiovascular exam: Present: RRR, +S1, +S2. Absent: diastolic murmur, gallop, rubs, systolic murmur - Extremities Exam Extremities exam: Present: warm, radial pulses palpable and symmetrical. Absent : calf tenderness, cyanotic, pedal edema - Neurological Exam Neurological exam: Present: alert, CN II-XII intact, oriented X3, no focal deficits. Absent: facial droop, speech deficit - Skin Skin exam: Present: dry, intact Internal Medicine: Result - Labs CBC & Chem 7: 02/15/17 05:47 02/15/17 05:47 Labs: Short CBC 02/15/17 Range/Units 05:47 WBC 11.0 (4.3-11.1) K/mcL Hgb 12.2 (11.5-15.4) g/dL Hct 37.5 (35.3-44.9) % Plt Count 190 (140-400) K/mcL Neutrophils # 9.5 H (1.6-8.9) K/mcL BMP 02/15/17 05:47 Sodium 132 L Potassium 4.8 Chloride 98 Carbon Dioxide 26 BUN 45 H Creatinine 1.15 Glucose 286 H Calcium 9.2 Liver Function 02/15/17 Range/Units 05:47 Total Bilirubin 0.5 (0.3-1.0) mg/dL AST 19 (13-39) Units/L ALT 12 (7-52) Units/L Alkaline Phosphatase 47 (34-104) Units/L Albumin 3.4 L (3.5-5.7) g/dL - ABG Interpretation ABG results: PT/INR, D-dimer PT 11.3 Seconds (9.4-12.1) 02/12/17 09:15 Consult Discharge Plan - Plan Referrals: Rula Graham, LIFT TRUCK OPERATOR [Primary Care Provider] -
[2017-02-15] MEDS ORDERED: Insulin DETEMIR 100 UNIT/ML X5UNITS SQ SCH (21:00)
[2017-02-15] MEDS: *HR* HYDROcodone/Acet 5/325 mg TABLET PO PRN (22:14)
[2017-02-16] MEDS: Ipratropium/Albuterol Neb 3 ML IH SCH ×2 (03:49→10:18)
[2017-02-16] MEDS: Budesonide Neb 0.25 MG/2 ML IH SCH ×2 (03:49→10:18)
[2017-02-16 05:07] LABS: Calcium 9.2 mg/dL (8.6-10.3); Potassium 4.3 mEq/L (3.5-5.1)
[2017-02-16] MEDS: *HR* Heparin 5,000 UNIT/ML VIAL SQ SCH (05:56)
[2017-02-16 07:25] VITALS: BP 160/81
[2017-02-16] MEDS ORDERED: Furosemide 40 MG TABLET PO SCH (08:00)
[2017-02-16] MEDS: amLODIPine 5 MG TABLET PO SCH (08:12)
[2017-02-16] MEDS: Insulin LISPRO 300 UNITS/3 ML VIAL SQ SCH (08:12)
[2017-02-16] MEDS: Oseltamivir Phosphate 30 MG CAPSULE PO SCH (08:13)
[2017-02-16] MEDS: Aspirin Enteric Coated 81 MG Tablet PO SCH (08:13)
[2017-02-16] MEDS: diazePAM 10 MG TABLET PO SCH (08:13)
[2017-02-16] MEDS: FLUoxetine 20 MG CAPSULE PO SCH (08:13)
[2017-02-16] MEDS: Cholecalciferol (D-3) 1,000 UNIT TABLET PO SCH (08:13)
[2017-02-16] MEDS: Cyanocobalamin (B-12) 1,000 MCG TABLET PO SCH (08:13)
[2017-02-16] MEDS: GUAIFENESIN 400 MG PO SCH (08:14)
[2017-02-16] MEDS: Nystatin POWDER 30 GM BOTTLE TP SCH (08:14)
[2017-02-16] MEDS: *HR* OxyCODONE/APAP 10/325 TABLET PO PRN (08:21)
[2017-02-16] MEDS ORDERED: predniSONE 20 MG TABLET PO SCH (09:00)
--- NOTE | 2017-02-16 09:31 | Discharge Summary ---
Date of Encounter: 02/16/17 Time of Encounter: 09:00 - Discharge Diagnosis (1) Acute exacerbation of chronic obstructive pulmonary disease (COPD) Priority: Primary Status: Acute (2) Acute exacerbation of CHF (congestive heart failure) Priority: Secondary Status: Acute Qualifiers: Congestive heart failure type: diastolic Qualified Code(s): I50.33 - Acute on chronic diastolic (congestive) heart failure (3) CKD (chronic kidney disease) stage 3, GFR 30-59 ml/min Priority: Secondary Status: Chronic (4) Decreased appetite Priority: Secondary Status: Acute (5) Diabetes Priority: Secondary Status: Chronic Qualifiers: Diabetes mellitus type: type 2 Diabetes mellitus complication status: without complication Diabetes mellitus jail insulin use: without jail use Qualified Code(s): E11.9 - Type 2 diabetes mellitus without complications (6) DVT prophylaxis Priority: Secondary Status: Acute (7) Frequent falls Priority: Secondary Status: Acute (8) Generalized weakness Priority: Secondary Status: Acute (9) Influenza A Priority: Secondary Status: Acute (10) Physical deconditioning Priority: Secondary Status: Acute - Discharge Medications Prescriptions: diazePAM [Valium] 10 mg PO BID #14 tablet Oxycodone HCl/Acetaminophen [Percocet 10-325 mg Tablet] 1 tab PO BID PRN #14 tablet PRN Reason: Pain Home Medications: Furosemide [Lasix] 40 mg PO BID 09/07/15 [History] Potassium Chloride [K-Tab ER] 10 meq PO BID 09/07/15 [History] Cyanocobalamin (B-12) [Vitamin B12] 500 mcg PO DAILY tablet 09/10/15 [Rx] Docusate [Colace] 100 mg PO BID PRN #0 capsule 09/10/15 [Rx] Clopidogrel [Plavix] 75 mg PO DAILY 12/29/15 [History] Losartan [Cozaar] 25 mg PO BID 12/29/15 [History] Ergocalciferol (VITAMIN D2) [Vitamin D2] 50,000 unit PO WE 01/26/16 [History] FLUoxetine HCl [Prozac] 40 mg PO DAILY 01/26/16 [History] Oxygen 3 l NS AD 01/26/16 [History] amLODIPine [Norvasc] 5 mg PO DAILY tab 09/28/16 [Rx] Bisacodyl [Dulcolax] 10 mg RC DAILY PRN 02/12/17 [History] Budesonide Neb [Pulmicort Neb] 0.25 mg IH QID 02/12/17 [History] Carbamide Peroxide 1 drop OT DAILY 02/12/17 [History] Carvedilol 3.125 mg PO BID 02/12/17 [History] Nystatin POWDER [Nystop] 1 appl TP BID 02/12/17 [History] Aspirin Enteric Coated [Aspirin EC] 81 mg PO DAILY tablet. 02/16/17 [Rx] Atorvastatin [Lipitor] 20 mg PO HS tablet 02/16/17 [Rx] Insulin DETEMIR [Levemir] 10 unit SQ HS [id number] 02/16/17 [Rx] Ipratropium/Albuterol Neb [Duoneb] 3 ml IH Q6HR PRN #1 02/16/17 [Rx] Oseltamivir Phosphate [Tamiflu] 30 mg PO BID 2 Days capsule 02/16/17 [Rx] Oxycodone HCl/Acetaminophen [Percocet 10-325 mg Tablet] 1 tab PO BID PRN #14 tablet 02/16/17 [Rx] diazePAM [Valium] 10 mg PO BID #14 tablet 02/16/17 [Rx] Allergies/Adverse Reactions: 3 Allergy/AdvReac Type Severity Reaction Status Date / Time Iodinated Contrast- Oral and AdvReac Hives, Verified 01/26/16 15:58 IV Dye Nausea, [Iodinated Contrast Media - Vomiting Oral and] Penicillins AdvReac Itching Verified 01/26/16 15:58 Date of admission: 02/12/17 11:18 Primary care physician: Rula Graham CNP Discharging clinician: Laney Alberto Anticipated date of discharge: 02/16/17 - Patient Status Disposition: Transfer SNF Condition: Fair Functional capacity at discharge: uses cane/walker Overall status at discharge: patient is progressing back to baseline - Discharge Instructions Instructions: Heart Failure (DC), Chronic Obstructive Pulmonary Disease (DC) Follow Up With: Rula Graham CNP [Primary Care Provider] - (in 1-2 weeks) Carlito Jones DO [Partnered Physician] - (1-2 weeks for CHF) - Diet and Activity Activity: as per physical therapy, increase activity as tolerated Diet: diabetic diet, low fat, low cholesterol, low salt diet, other (fluid restriction to 1.5L/day) Hospital course: Ms. Roll is a 76 year old female is sent with a history of CHF and COPD who was hospitalized here with acute episode of exacerbation of CHF along with exacerbation of COPD After she presented to the ER with complaints of increasing shortness of breath. Patient has had right-sided residual weakness from prior CVA. She had been having episodes of falls at home. She was placed on Lasix intravenously to treat CHF along with intravenous Solu-Medrol and azithromycin to treat her COPD. She was then found to be positive for influenza A. She was started on treatment for this with Tamiflu. Patient has had decreased appetite prior to presentation and was having generalized weakness. She was evaluated by physical therapy and recommended placement of skilled rehabilitation. Her symptoms have slowly improved since her hospitalization and presently she is feeling much better. She is clinically stable for discharge and will be transferred to [facility] facility for rehabilitation. She will complete treatment for influenza A with Tamiflu. - Time Spent with Patient Total time spent providing and/or coordinating discharge services: Greater than 30 minutes (40 min) - Constitutional Vitals: Temp Pulse Resp BP Pulse Ox 97.5 F L 54 17 160/81 97 02/16/17 07:23 02/16/17 07:23 02/16/17 07:23 02/16/17 07:23 02/16/17 08:29 General appearance: Present: cooperative, A&O X 3, pleasant, obese, answers questions appropriately - Respiratory Respiratory exam: Present: prolonged expiratory phase, wheezes. Absent: accessory muscle use, rales, rhonchi - Cardiovascular Cardiovascular exam: Present: RRR, +S1, +S2. Absent: diastolic murmur, gallop, rubs, systolic murmur - GI/Abdominal GI/Abdominal exam: Present: normal bowel sounds, soft, no peritoneal signs. Absent: distended, tenderness - Extremities Exam Extremities exam: Present: warm, radial pulses palpable and symmetrical. Absent : calf tenderness, cyanotic, pedal edema
--- NOTE | 2017-02-16 09:38 | Physician Discharge Referral ---
[facility] Referral Info Provider in Charge after Transfer: PCP Institutional Level of Care: Skilled - Diagnosis (1) Acute exacerbation of chronic obstructive pulmonary disease (COPD) Priority: Primary Status: Acute (2) Acute exacerbation of CHF (congestive heart failure) Priority: Secondary Status: Acute (3) CKD (chronic kidney disease) stage 3, GFR 30-59 ml/min Priority: Secondary Status: Chronic (4) Decreased appetite Priority: Secondary Status: Acute (5) Diabetes Priority: Secondary Status: Chronic (6) DVT prophylaxis Priority: Secondary Status: Acute (7) Frequent falls Priority: Secondary Status: Acute (8) Generalized weakness Priority: Secondary Status: Acute (9) Influenza A Priority: Secondary Status: Acute (10) Physical deconditioning Priority: Secondary Status: Acute Prognosis: Fair Aware of Diagnosis: Patient, Family Aware of Prognosis: Patient, Family - Transfer Medications Prescriptions: diazePAM [Valium] 10 mg PO BID #14 tablet Oxycodone HCl/Acetaminophen [Percocet 10-325 mg Tablet] 1 tab PO BID PRN #14 tablet PRN Reason: Pain Home Medications: Furosemide [Lasix] 40 mg PO BID 09/07/15 [History] Potassium Chloride [K-Tab ER] 10 meq PO BID 09/07/15 [History] Cyanocobalamin (B-12) [Vitamin B12] 500 mcg PO DAILY tablet 09/10/15 [Rx] Docusate [Colace] 100 mg PO BID PRN #0 capsule 09/10/15 [Rx] Clopidogrel [Plavix] 75 mg PO DAILY 12/29/15 [History] Losartan [Cozaar] 25 mg PO BID 12/29/15 [History] Ergocalciferol (VITAMIN D2) [Vitamin D2] 50,000 unit PO WE 01/26/16 [History] FLUoxetine HCl [Prozac] 40 mg PO DAILY 01/26/16 [History] Oxygen 3 l NS AD 01/26/16 [History] amLODIPine [Norvasc] 5 mg PO DAILY tab 09/28/16 [Rx] Bisacodyl [Dulcolax] 10 mg RC DAILY PRN 02/12/17 [History] Budesonide Neb [Pulmicort Neb] 0.25 mg IH QID 02/12/17 [History] Carbamide Peroxide 1 drop OT DAILY 02/12/17 [History] Carvedilol 3.125 mg PO BID 02/12/17 [History] Nystatin POWDER [Nystop] 1 appl TP BID 02/12/17 [History] Aspirin Enteric Coated [Aspirin EC] 81 mg PO DAILY tablet. 02/16/17 [Rx] Atorvastatin [Lipitor] 20 mg PO HS tablet 02/16/17 [Rx] Insulin DETEMIR [Levemir] 10 unit SQ HS [id number] 02/16/17 [Rx] Ipratropium/Albuterol Neb [Duoneb] 3 ml IH Q6HR PRN #1 02/16/17 [Rx] Oseltamivir Phosphate [Tamiflu] 30 mg PO BID 2 Days capsule 02/16/17 [Rx] Oxycodone HCl/Acetaminophen [Percocet 10-325 mg Tablet] 1 tab PO BID PRN #14 tablet 02/16/17 [Rx] diazePAM [Valium] 10 mg PO BID #14 tablet 02/16/17 [Rx] Allergies/Adverse Reactions: 3 Allergy/AdvReac Type Severity Reaction Status Date / Time Iodinated Contrast- Oral and AdvReac Hives, Verified 01/26/16 15:58 IV Dye Nausea, [Iodinated Contrast Media - Vomiting Oral and] Penicillins AdvReac Itching Verified 01/26/16 15:58 - Respiratory Orders Oxygen / L per min (2) Smoking Cessation: Smoking cessation has been advised. For more information, call the [place] Tobacco Quit Line at 1-938-MTFG-NOW. - Advance Directives Code Status: Full Code - Mobility Orders Ambulate (per PT) - Rehabiliation Orders Rehab Potential: Fair Rehab Orders: Evaluation for Physical Therapy, Evaluation for Occupational Therapy - Diet Orders No Concentrated Sweets (diabetic), Cardiac CERTIFICATION: I certify that the transfer of the above named patient to an Extended Care Facility is necessary for the continuing treatment of the diagnosis listed. The above information is true and accurate reflection of patient's current condition. Confidential - Redisclosure prohibited without a patient's written consent.
== END 2017-02-16 12:04 ==
LOC: EMEROO 08:56 → 3BNU 08:56 → SUATTDRO 11:18 → 3BNU 11:33
PROVIDERS: ADMIT Hospitalist; ATTEND Internal Medicine

== ENCOUNTER 2021-05-31 01:25 | Observation (INO) ==
[2021-05-31 03:58] LABS: VBG HCO3 30 mEq/L (21-27); VBG PCO2 49 mmHg (41-51); VBG PO2 149 mmHg (25-50)
[2021-05-31 04:05] LABS: Basophils % 0.5 %; Eosinophils # 0.5 K/mcL (0.0-0.6); Eosinophils % 6.4 %; Immature Granulocytes % 0.4 % (0-4); Lymphocytes % 24.9 %; Mean Corpuscular HGB Conc 30.5 g/dL (31.6-35.5); Mean Corpuscular Hemoglobin 28.7 pg (28.0-33.3); Mean Corpuscular Volume 94.2 fL (83.0-100.0); Mean Platelet Volume 10.4 fL (9.4-12.4); Monocytes # 0.8 K/mcL (0.0-1.3); Monocytes % 9.8 %; Neutrophils # 4.7 K/mcL (1.6-8.9); Platelet Count 184 K/mcL (140-400); Red Blood Count 4.67 M/mcL (3.82-4.97); Red Cell Distribution Width 13.2 % (11.5-14.5)
[2021-05-31 04:09] LABS: Hemoglobin 13.4 g/dL (11.5-15.4)
[2021-05-31 04:16] LABS: Albumin 3.5 g/dL (3.5-5.7); Albumin/Globulin Ratio 0.9 (1.1-2.2); Bilirubin,Total 0.4 mg/dL (0.3-1.0); Calcium 9.1 mg/dL (8.6-10.3); Globulin 3.9 g/dL (2.4-3.5); Potassium 3.7 mEq/L (3.5-5.1); Total Protein 7.4 g/dL (6.4-8.9)
[2021-05-31 04:53] LABS: INR 1.1; Prothrombin Time 11.8 Seconds (9.4-12.1)
[2021-05-31 04:55] LABS: Activated Partial Thrombo Time 35.7 Seconds (26.0-36.0)
[2021-05-31] MEDS ORDERED: Morphine Sulfate 2 MG/ML SYRINGE IVP ONE (05:34)
[2021-05-31] MEDS ORDERED: Naloxone 0.4 MG/ML INJ IVP PRN (06:07)
[2021-05-31] MEDS ORDERED: Melatonin 3 MG TABLET PO PRN (06:07)
[2021-05-31] MEDS ORDERED: Perflutren Lipid Microsphere 1.3 ML in 0.9 % Sodium Chloride 8.7 ML IVP PRN (07:04)
[2021-05-31] MEDS: cefTRIAXone 1,000 MG in 0.9 % Sodium Chloride 10 ML IVP SCH (07:44)
[2021-05-31] MEDS: Aspirin Enteric Coated 81 MG Tablet PO SCH (07:44)
[2021-05-31] MEDS ORDERED: *HR* LORazepam 2 MG/ML VIAL IVP ONE (10:18)
[2021-05-31 17:02] LABS: Bilirubin,Urine Negative (Negative); Blood,Urine Negative (Negative); Clarity,Urine Clear (Clear); Color,Urine Light-Yellow (Yellow); Glucose,Urine (UA) Normal (Normal); Hyaline Casts,Urine Few per lpf (None Seen); Ketones,Urine Negative (Negative); Leukocyte Esterase,Urine Small (Negative); Mucus,Urine Few per lpf (None-Few); Nitrite,Urine Negative (Negative); Protein,Urine Negative (Neg-Trace); RBC,Urine 0-3 per hpf (0-3); Specific Gravity,Urine 1.013 (1.010-1.025); Squamous Epithelial Cell,Urine Moderate per hpf (None-Few); Urobilinogen,Urine Normal (Normal)
[2021-06-01] MEDS: cefTRIAXone 1,000 MG in 0.9 % Sodium Chloride 10 ML IVP SCH (08:16)
[2021-06-01] MEDS: Aspirin Enteric Coated 81 MG Tablet PO SCH (08:16)
[2021-06-01 10:40] LABS: Hematocrit 42.6 % (35.3-44.9); Mean Corpuscular HGB Conc 30.5 g/dL (31.6-35.5); Mean Corpuscular Hemoglobin 28.4 pg (28.0-33.3); Mean Platelet Volume 10.2 fL (9.4-12.4); Platelet Count 194 K/mcL (140-400); Red Blood Count 4.58 M/mcL (3.82-4.97); White Blood Count 8.7 K/mcL (4.3-11.1)
[2021-06-01 11:04] LABS: Calcium 9.3 mg/dL (8.6-10.3); Potassium 3.8 mEq/L (3.5-5.1)
[2021-06-01] MEDS ORDERED: Bisacodyl 10 MG RECTAL SUPPOSITORY RC PRN (12:15)
[2021-06-01] MEDS ORDERED: Dextrose 4 GM Chewable Tablets PO PRN ×2 (12:27)
[2021-06-01] MEDS ORDERED: *HR* Dextrose 50 % in Water (Syg) 50 ML SYRINGE IVP PRN (12:27)
[2021-06-01] MEDS ORDERED: D5% in Water 1,000 ML IVC PRN (12:27)
[2021-06-01] MEDS: carvediloL 6.25 MG TABLET PO SCH ×2 (12:37→22:27)
[2021-06-01] MEDS: amLODIPine 5 MG TABLET PO SCH (12:37)
[2021-06-01] MEDS: Insulin LISPRO 300 UNITS/3 ML VIAL SUBQ SCH ×2 (16:27→20:47)
[2021-06-01] MEDS: Furosemide 20 MG TABLET PO SCH (16:27)
[2021-06-01] MEDS: *HR* OxyCODONE/APAP 10/325 TABLET PO SCH ×2 (16:27→22:21)
[2021-06-01] MEDS ORDERED: Budesonide Neb 0.25 MG/2 ML IH SCH (17:00)
[2021-06-01] MEDS ORDERED: Budesonide Neb 0.25 MG/2 ML IH PRN (17:00)
[2021-06-01] MEDS ORDERED: diazePAM 10 MG TABLET PO SCH (21:00)
[2021-06-01] MEDS: diazePAM 5 MG TABLET PO SCH (22:22)
[2021-06-01] MEDS: Cyanocobalamin (B-12) 1,000 MCG TABLET PO SCH (22:26)
[2021-06-01] MEDS: Famotidine 20 MG TABLET PO SCH (22:27)
[2021-06-02 04:54] LABS: Hematocrit 40.7 % (35.3-44.9); Hemoglobin 12.7 g/dL (11.5-15.4); Mean Corpuscular HGB Conc 31.2 g/dL (31.6-35.5); Mean Corpuscular Volume 92.9 fL (83.0-100.0); Mean Platelet Volume 10.4 fL (9.4-12.4); Platelet Count 164 K/mcL (140-400); Red Blood Count 4.38 M/mcL (3.82-4.97); White Blood Count 7.7 K/mcL (4.3-11.1)
[2021-06-02 05:25] LABS: Potassium 3.6 mEq/L (3.5-5.1)
[2021-06-02] MEDS: cefTRIAXone 1,000 MG in 0.9 % Sodium Chloride 10 ML IVP SCH (07:50)
[2021-06-02] MEDS: Insulin LISPRO 300 UNITS/3 ML VIAL SUBQ SCH ×4 (07:50→20:35)
[2021-06-02] MEDS: *HR* OxyCODONE/APAP 10/325 TABLET PO SCH ×3 (07:51→20:52)
[2021-06-02] MEDS: Aspirin Enteric Coated 81 MG Tablet PO SCH (07:51)
[2021-06-02] MEDS: diazePAM 5 MG TABLET PO SCH ×2 (07:52→20:53)
[2021-06-02] MEDS: Cyanocobalamin (B-12) 1,000 MCG TABLET PO SCH ×2 (07:52→20:52)
[2021-06-02] MEDS: Furosemide 20 MG TABLET PO SCH ×2 (07:52→17:07)
[2021-06-02] MEDS: amLODIPine 5 MG TABLET PO SCH (07:52)
[2021-06-02] MEDS: carvediloL 6.25 MG TABLET PO SCH ×2 (07:52→17:07)
[2021-06-02] MEDS ORDERED: diazePAM 5 MG TABLET PO ONE (08:30)
[2021-06-02] MEDS ORDERED: 0.9 % Sodium Chloride 250 ML IVC ONE (13:22)
[2021-06-02] MEDS: Famotidine 20 MG TABLET PO SCH (20:51)
[2021-06-03] MEDS: Insulin LISPRO 300 UNITS/3 ML VIAL SUBQ SCH ×3 (07:24→16:52)
[2021-06-03] MEDS: *HR* OxyCODONE/APAP 10/325 TABLET PO SCH ×2 (09:20→15:40)
[2021-06-03] MEDS: diazePAM 5 MG TABLET PO SCH (09:20)
[2021-06-03] MEDS: Aspirin Enteric Coated 81 MG Tablet PO SCH (09:21)
[2021-06-03] MEDS: Furosemide 20 MG TABLET PO SCH ×2 (09:21→15:40)
[2021-06-03] MEDS: Cyanocobalamin (B-12) 1,000 MCG TABLET PO SCH (09:22)
[2021-06-03] MEDS: carvediloL 6.25 MG TABLET PO SCH ×2 (09:22→15:40)
[2021-06-03] MEDS: amLODIPine 5 MG TABLET PO SCH (09:23)
[2021-06-03 14:29] VITALS: BP 106/66; PULSE 77; TEMP 97.7; O2SAT 92
[2021-06-03 16:46] LABS: Influenza A PCR Negative (Negative); Influenza B PCR Negative (Negative); Resp. Syncytial Virus PCR Negative (Negative); SARS-CoV-2 by PCR (In House) Negative (Negative)
== END 2021-06-03 18:22 ==
LOC: EMEROOARM 01:25 → 3BNU 01:25 → SUATTDRO 06:11 → 3BNU 06:54
PROVIDERS: ADMIT Internal Medicine; ATTEND Registered Nurse

== ENCOUNTER 2021-06-18 10:53 | Inpatient (IN) ==
[2021-06-18] MEDS ORDERED: 0.9 % Sodium Chloride 1,000 ML IVC ONE (11:40)
[2021-06-18 11:54] LABS: Basophils # 0.1 K/mcL (0.0-0.2); Basophils % 0.5 %; Eosinophils # 0.7 K/mcL (0.0-0.6); Eosinophils % 6.7 %; Hematocrit 23.2 % (35.3-44.9); Hemoglobin 7.1 g/dL (11.5-15.4); Immature Granulocytes % 0.5 % (0-4); Lymphocytes # 2.3 K/mcL (0.6-4.6); Lymphocytes % 20.9 %; Mean Corpuscular HGB Conc 30.6 g/dL (31.6-35.5); Mean Corpuscular Hemoglobin 29.5 pg (28.0-33.3); Mean Corpuscular Volume 96.3 fL (83.0-100.0); Mean Platelet Volume 11.3 fL (9.4-12.4); Monocytes # 0.7 K/mcL (0.0-1.3); Monocytes % 5.9 %; Neutrophils # 7.2 K/mcL (1.6-8.9); Platelet Count 186 K/mcL (140-400); Red Blood Count 2.41 M/mcL (3.82-4.97); Red Cell Distribution Width 13.8 % (11.5-14.5); Segmented Neutrophils % 65.5 %
[2021-06-18 12:06] LABS: INR 2.3
[2021-06-18 12:09] LABS: Activated Partial Thrombo Time 43.8 Seconds (26.0-36.0)
[2021-06-18 13:25] LABS: Alanine Aminotransferase 5 Units/L (7-52); Albumin/Globulin Ratio 0.9 (1.1-2.2); Alkaline Phosphatase 64 Units/L (34-104); Aspartate Amino Transferase 13 Units/L (13-39); BUN/Creatinine Ratio 46 (6-26); Bilirubin,Indirect 0.3 mg/dL (0.0-1.0); Bilirubin,Total 0.3 mg/dL (0.3-1.0); Blood Urea Nitrogen 84 mg/dL (8-23); Calcium 8.2 mg/dL (8.6-10.3); Carbon Dioxide 34 mEq/L (23-29); Chloride 100 mEq/L (98-107); Ethanol < 10 mg/dL (Less than 10); Globulin 3.5 g/dL (2.4-3.5); Glucose 191 mg/dL (70-105); Osmolality,Calculated 321 (280-300); Potassium 4.3 mEq/L (3.5-5.1); Sodium 140 mEq/L (136-145); Total Protein 6.5 g/dL (6.4-8.9); eGFR For African Americans 32 (> 60); eGFR For Non-African Americans 27 (> 60)
[2021-06-18 13:42] LABS: Troponin I < 0.03 ng/mL (< 0.04)
[2021-06-18 15:14] LABS: Amphetamine Screen,Urine Negative ng/mL (Cutoff=1000); Barbiturate Screen,Urine Negative ng/mL (Cutoff=200); Benzodiazepines Screen,Urine Positive ng/mL (Cutoff=200); Cannabinoid Screen,Urine Negative ng/mL (Cutoff = 50); Cocaine Screen,Urine Negative ng/mL (Cutoff= 300); Opiate Screen,Urine Negative ng/mL (Cutoff=300); Phencyclidine Screen,Urine Negative ng/mL (Cutoff=25)
[2021-06-18 15:15] LABS: Bacteria,Urine Few per hpf (None-Few); Bilirubin,Urine Negative (Negative); Blood,Urine Trace (Negative); Clarity,Urine Clear (Clear); Color,Urine Light-Yellow (Yellow); Glucose,Urine (UA) Normal (Normal); Hyaline Casts,Urine Few per lpf (None Seen); Ketones,Urine Negative (Negative); Leukocyte Esterase,Urine Negative (Negative); Mucus,Urine Few per lpf (None-Few); Nitrite,Urine Negative (Negative); PH,Urine 5.5 pH Units (5.0-8.0); Protein,Urine Negative (Neg-Trace); RBC,Urine 0-3 per hpf (0-3); Specific Gravity,Urine 1.014 (1.010-1.025); Squamous Epithelial Cell,Urine Few per hpf (None-Few); Urobilinogen,Urine Normal (Normal); WBC,Urine 0-3 per hpf (0-3)
[2021-06-18] MEDS: Pantoprazole 40 MG VIAL IVP SCH (17:36)
[2021-06-18] MEDS: 0.9 % Sodium Chloride 500 ML IVC SCH ×2 (17:36→21:30)
[2021-06-18] MEDS ORDERED: 0.9 % Sodium Chloride 250 ML ONE (18:27)
[2021-06-18] MEDS: Famotidine 20 MG TABLET PO SCH (21:30)
[2021-06-19 01:03] LABS: Hematocrit 25.6 % (35.3-44.9); Hemoglobin 8.1 g/dL (11.5-15.4); Mean Corpuscular HGB Conc 31.6 g/dL (31.6-35.5); Mean Corpuscular Volume 94.8 fL (83.0-100.0); Mean Platelet Volume 11.2 fL (9.4-12.4); Platelet Count 151 K/mcL (140-400); Red Cell Distribution Width 14.6 % (11.5-14.5); White Blood Count 10.6 K/mcL (4.3-11.1)
[2021-06-19] MEDS: 0.9 % Sodium Chloride 500 ML IVC SCH ×5 (01:41→15:33)
[2021-06-19 02:00] LABS: Calcium 7.8 mg/dL (8.6-10.3); Potassium 4.9 mEq/L (3.5-5.1)
[2021-06-19] MEDS: Pantoprazole 40 MG VIAL IVP SCH ×2 (05:46→18:02)
[2021-06-19 11:13] LABS: INR 1.1; Prothrombin Time 12.7 Seconds (9.4-12.1)
[2021-06-19] MEDS: Nystatin POWDER 30 GM BOTTLE TP SCH ×2 (12:24→22:44)
[2021-06-19] MEDS: Famotidine 20 MG TABLET PO SCH (22:40)
[2021-06-20] MEDS: Pantoprazole 40 MG VIAL IVP SCH ×2 (05:25→17:15)
[2021-06-20 06:03] LABS: Hematocrit 20.8 % (35.3-44.9); Hemoglobin 6.4 g/dL (11.5-15.4); Mean Corpuscular HGB Conc 30.8 g/dL (31.6-35.5); Mean Corpuscular Hemoglobin 29.4 pg (28.0-33.3); Mean Corpuscular Volume 95.4 fL (83.0-100.0); Mean Platelet Volume 10.7 fL (9.4-12.4); Platelet Count 172 K/mcL (140-400); Red Blood Count 2.18 M/mcL (3.82-4.97); Red Cell Distribution Width 14.7 % (11.5-14.5)
[2021-06-20 06:37] LABS: Calcium 7.8 mg/dL (8.6-10.3)
[2021-06-20] MEDS: Nystatin POWDER 30 GM BOTTLE TP SCH ×2 (08:20→20:43)
[2021-06-20 15:06] LABS: Hematocrit 24.3 % (35.3-44.9); Hemoglobin 7.8 g/dL (11.5-15.4); Mean Corpuscular HGB Conc 32.1 g/dL (31.6-35.5); Mean Corpuscular Hemoglobin 30.6 pg (28.0-33.3); Mean Corpuscular Volume 95.3 fL (83.0-100.0); Mean Platelet Volume 10.6 fL (9.4-12.4); Platelet Count 184 K/mcL (140-400); Red Blood Count 2.55 M/mcL (3.82-4.97); Red Cell Distribution Width 14.6 % (11.5-14.5)
[2021-06-20] MEDS: 0.9 % Sodium Chloride 500 ML IVC SCH (18:50)
[2021-06-20] MEDS: Famotidine 20 MG TABLET PO SCH (20:39)
[2021-06-20] MEDS: diazePAM 5 MG TABLET PO PRN (23:09)
[2021-06-21] MEDS: Albuterol 2.5 MG/3 ML NEBULIZER IH PRN (00:12)
[2021-06-21 03:17] LABS: Hematocrit 23.7 % (35.3-44.9); Hemoglobin 7.4 g/dL (11.5-15.4); Mean Corpuscular HGB Conc 31.2 g/dL (31.6-35.5); Mean Corpuscular Hemoglobin 29.8 pg (28.0-33.3); Mean Corpuscular Volume 95.6 fL (83.0-100.0); Mean Platelet Volume 10.6 fL (9.4-12.4); Platelet Count 192 K/mcL (140-400); Red Blood Count 2.48 M/mcL (3.82-4.97)
[2021-06-21 03:35] LABS: BUN/Creatinine Ratio 41 (6-26); Blood Urea Nitrogen 39 mg/dL (8-23); Calcium 7.8 mg/dL (8.6-10.3); Carbon Dioxide 31 mEq/L (23-29); Chloride 109 mEq/L (98-107); Glucose 155 mg/dL (70-105); Osmolality,Calculated 307 (280-300); Potassium 3.8 mEq/L (3.5-5.1); Sodium 142 mEq/L (136-145); eGFR For African Americans > 60 (> 60); eGFR For Non-African Americans 56 (> 60)
[2021-06-21] MEDS: Pantoprazole 40 MG VIAL IVP SCH ×2 (05:09→17:28)
[2021-06-21] MEDS: Nystatin POWDER 30 GM BOTTLE TP SCH ×2 (08:32→19:29)
[2021-06-21] MEDS ORDERED: SODIUM CHLORIDE/NAHCO3/KCL/PEG 4,000 ML SOLN.RECON PO ONE (17:00)
[2021-06-21] MEDS ORDERED: Furosemide 40 MG/4 ML VIAL IVP ONE (17:12)
[2021-06-21] MEDS: Famotidine 20 MG TABLET PO SCH (19:28)
[2021-06-22 01:53] LABS: Hematocrit 25.1 % (35.3-44.9); Hemoglobin 7.8 g/dL (11.5-15.4); Mean Corpuscular HGB Conc 31.1 g/dL (31.6-35.5); Mean Corpuscular Hemoglobin 29.9 pg (28.0-33.3); Mean Corpuscular Volume 96.2 fL (83.0-100.0); Mean Platelet Volume 10.7 fL (9.4-12.4); Platelet Count 230 K/mcL (140-400); Red Blood Count 2.61 M/mcL (3.82-4.97); Red Cell Distribution Width 15.3 % (11.5-14.5); White Blood Count 14.6 K/mcL (4.3-11.1)
[2021-06-22 02:10] LABS: BUN/Creatinine Ratio 28 (6-26); Blood Urea Nitrogen 26 mg/dL (8-23); Calcium 8.4 mg/dL (8.6-10.3); Carbon Dioxide 31 mEq/L (23-29); Chloride 105 mEq/L (98-107); Glucose 162 mg/dL (70-105); Osmolality,Calculated 300 (280-300); Potassium 3.4 mEq/L (3.5-5.1); Sodium 141 mEq/L (136-145); eGFR For African Americans > 60 (> 60); eGFR For Non-African Americans 57 (> 60)
[2021-06-22] MEDS: Pantoprazole 40 MG VIAL IVP SCH ×2 (05:06→17:08)
[2021-06-22] MEDS: Nystatin POWDER 30 GM BOTTLE TP SCH ×2 (07:52→19:43)
[2021-06-22] MEDS ORDERED: Furosemide 20 MG/2 ML VIAL IVP ONE (08:11)
[2021-06-22] MEDS ORDERED: Lidocaine -MPF 2% 2 ML VIAL ONE (08:29)
[2021-06-22] MEDS ORDERED: EPHEDrine 50 MG/ML VIAL ONE (13:51)
[2021-06-22] MEDS ORDERED: Simethicone 40 MG/0.6 ML MLS IR ONE ×2 (14:08→14:30)
[2021-06-22] MEDS: Furosemide 20 MG TABLET PO SCH (17:08)
[2021-06-22] MEDS: amLODIPine 5 MG TABLET PO SCH (17:18)
[2021-06-22] MEDS: Albuterol 2.5 MG/3 ML NEBULIZER IH PRN ×2 (17:58→20:15)
[2021-06-22] MEDS: diazePAM 5 MG TABLET PO PRN (19:43)
[2021-06-23] MEDS ORDERED: Acetaminophen 325 MG TABLET PO PRN (04:36)
[2021-06-23] MEDS: Pantoprazole 40 MG VIAL IVP SCH (05:09)
[2021-06-23 05:58] LABS: Hemoglobin 7.7 g/dL (11.5-15.4); Mean Corpuscular HGB Conc 32.1 g/dL (31.6-35.5); Mean Corpuscular Hemoglobin 30.6 pg (28.0-33.3); Mean Corpuscular Volume 95.2 fL (83.0-100.0); Mean Platelet Volume 10.7 fL (9.4-12.4); Platelet Count 206 K/mcL (140-400); Red Blood Count 2.52 M/mcL (3.82-4.97); Red Cell Distribution Width 15.8 % (11.5-14.5); White Blood Count 12.5 K/mcL (4.3-11.1)
[2021-06-23 06:17] LABS: BUN/Creatinine Ratio 14 (6-26); Blood Urea Nitrogen 14 mg/dL (8-23); Calcium 8.2 mg/dL (8.6-10.3); Carbon Dioxide 32 mEq/L (23-29); Chloride 103 mEq/L (98-107); Glucose 154 mg/dL (70-105); Osmolality,Calculated 296 (280-300); Potassium 3.8 mEq/L (3.5-5.1); Sodium 141 mEq/L (136-145); eGFR For African Americans > 60 (> 60); eGFR For Non-African Americans 52 (> 60)
[2021-06-23] MEDS: amLODIPine 5 MG TABLET PO SCH (09:41)
[2021-06-23] MEDS: Nystatin POWDER 30 GM BOTTLE TP SCH ×2 (09:41→20:05)
[2021-06-23] MEDS: Furosemide 20 MG TABLET PO SCH ×2 (09:42→17:01)
[2021-06-23] MEDS: Albuterol 2.5 MG/3 ML NEBULIZER IH PRN (16:02)
[2021-06-23] MEDS: Apixaban 5 MG TABLET PO SCH ×2 (17:00→20:04)
[2021-06-23] MEDS: *HR* OxyCODONE/APAP 10/325 TABLET PO PRN (20:06)
[2021-06-24 02:59] LABS: Hematocrit 23.6 % (35.3-44.9); Hemoglobin 7.3 g/dL (11.5-15.4); Mean Corpuscular HGB Conc 30.9 g/dL (31.6-35.5); Mean Corpuscular Hemoglobin 29.7 pg (28.0-33.3); Mean Corpuscular Volume 95.9 fL (83.0-100.0); Mean Platelet Volume 10.6 fL (9.4-12.4); Platelet Count 233 K/mcL (140-400); Red Blood Count 2.46 M/mcL (3.82-4.97); Red Cell Distribution Width 15.9 % (11.5-14.5); White Blood Count 12.4 K/mcL (4.3-11.1)
[2021-06-24 03:25] LABS: Calcium 8.3 mg/dL (8.6-10.3); Potassium 3.2 mEq/L (3.5-5.1)
[2021-06-24] MEDS: amLODIPine 5 MG TABLET PO SCH (08:32)
[2021-06-24] MEDS: Apixaban 5 MG TABLET PO SCH ×2 (08:32→19:47)
[2021-06-24] MEDS: Furosemide 20 MG TABLET PO SCH ×2 (08:32→15:48)
[2021-06-24] MEDS: *HR* OxyCODONE/APAP 10/325 TABLET PO PRN ×2 (08:32→15:49)
[2021-06-24] MEDS: diazePAM 5 MG TABLET PO PRN ×2 (08:32→19:47)
[2021-06-24] MEDS: Nystatin POWDER 30 GM BOTTLE TP SCH ×2 (08:33→19:52)
[2021-06-24] MEDS: Albuterol 2.5 MG/3 ML NEBULIZER IH PRN (16:00)
[2021-06-25] MEDS: *HR* OxyCODONE/APAP 10/325 TABLET PO PRN ×3 (00:03→21:37)
[2021-06-25 05:15] LABS: Hematocrit 23.8 % (35.3-44.9); Hemoglobin 7.2 g/dL (11.5-15.4); Mean Corpuscular HGB Conc 30.3 g/dL (31.6-35.5); Mean Corpuscular Hemoglobin 29.3 pg (28.0-33.3); Mean Corpuscular Volume 96.7 fL (83.0-100.0); Mean Platelet Volume 10.7 fL (9.4-12.4); Platelet Count 250 K/mcL (140-400); Red Blood Count 2.46 M/mcL (3.82-4.97); Red Cell Distribution Width 15.5 % (11.5-14.5)
[2021-06-25 05:39] LABS: Calcium 8.3 mg/dL (8.6-10.3); Potassium 3.5 mEq/L (3.5-5.1)
[2021-06-25] MEDS: Furosemide 20 MG TABLET PO SCH (09:26)
[2021-06-25] MEDS: Nystatin POWDER 30 GM BOTTLE TP SCH ×2 (09:27→21:41)
[2021-06-25] MEDS: Apixaban 5 MG TABLET PO SCH ×2 (09:27→21:38)
[2021-06-25] MEDS: amLODIPine 5 MG TABLET PO SCH (09:27)
[2021-06-25 11:08] LABS: Calcium 8.2 mg/dL (8.6-10.3); Potassium 3.3 mEq/L (3.5-5.1)
[2021-06-25] MEDS: diazePAM 5 MG TABLET PO PRN (11:36)
[2021-06-26 06:11] LABS: Hematocrit 27.7 % (35.3-44.9); Hemoglobin 8.4 g/dL (11.5-15.4); Mean Corpuscular HGB Conc 30.3 g/dL (31.6-35.5); Mean Corpuscular Hemoglobin 29.4 pg (28.0-33.3); Mean Corpuscular Volume 96.9 fL (83.0-100.0); Mean Platelet Volume 10.5 fL (9.4-12.4); Platelet Count 288 K/mcL (140-400); Red Blood Count 2.86 M/mcL (3.82-4.97); Red Cell Distribution Width 15.3 % (11.5-14.5); White Blood Count 11.1 K/mcL (4.3-11.1)
[2021-06-26 06:30] LABS: Calcium 8.6 mg/dL (8.6-10.3); Potassium 3.3 mEq/L (3.5-5.1)
[2021-06-26 08:16] LABS: Magnesium 2.1 mg/dL (1.6-2.6)
[2021-06-26] MEDS: amLODIPine 5 MG TABLET PO SCH (09:22)
[2021-06-26] MEDS: Apixaban 5 MG TABLET PO SCH (09:22)
[2021-06-26] MEDS: *HR* OxyCODONE/APAP 10/325 TABLET PO PRN (09:23)
[2021-06-26] MEDS: Nystatin POWDER 30 GM BOTTLE TP SCH (09:23)
[2021-06-26 12:30] LABS: Influenza A PCR Negative (Negative); Influenza B PCR Negative (Negative); Resp. Syncytial Virus PCR Negative (Negative)
[2021-06-26 12:54] LABS: SARS-CoV-2 by PCR (In House) Negative (Negative)
[2021-06-26 15:16] VITALS: BP 144/36; PULSE 77; TEMP 97.9; O2SAT 95
== END 2021-06-26 19:20 | DRG 811 ==
LOC: 2NENU 10:53 → EMEROOARM 10:53 → SUATTDRO 16:15 → 2NENU 17:04 → SUATTDRO 06-20 14:51
PROVIDERS: ADMIT Student in an Organized Health Care Education/Training Program; ATTEND Family Medicine
PROC: ENDOEBX (2021-06-22 13:00)